=== PATIENT | male | born 1940 | race Caucasian/White ===

== ENCOUNTER 2023-12-05 07:05 | Emergency (ER) | payer MEDICARE, OTHER, SELFPAY ==
[2023-12-05 07:07] VITALS: BP 149/74
[2023-12-05 08:49] VITALS: BP 96/84
[2023-12-05 09:17] VITALS: BP 155/58
[2023-12-05 09:40] LABS: % Basophils 0.5 % (0-2); % Eosinophils 1.7 % (0-6); % Immature Granulocytes 0.5 % (0-0.5); % Lymphocytes 24.4 % (20.5-51.1); % Monocytes 9.1 % (1.7-9.3); % Neutrophils 63.8 % (42.2-75.2); Absolute Eosinophils 0.1 10^3/uL (0-0.7); Absolute Lymphocytes 1.4 10^3/uL (1.2-3.4); Absolute Monocytes 0.5 10^3/uL (0.1-0.6); Absolute Neutrophils 3.7 10^3/uL (1.4-6.5); Hematocrit 33.3 % (39.0-52.0); Hemoglobin 10.8 g/dL (13.0-18.0); Mean Corp Hgb Conc. 32.4 g/dL (33.0-37.0); Mean Corpuscular Volume 95.7 fL (80.0-94.0); Mean Platelet Volume 10.2 fL (7.4-10.4); Nucleated Red Blood Cells % 0 % (-); Platelet Count 149 10^3/uL (130-400); Red Blood Cell Count 3.48 10^6/uL (4.70-6.10); Red Cell Dist. Width 14.6 % (11.5-14.5); White Blood Cell Count 5.8 10^3/uL (4.8-10.8)
--- NOTE | 2023-12-05 09:53 | ED.GENMED ---
History of Present Illness
General
Chief Complaint: Fall
Source: patient and family
Exam Limitations: none
Time Seen by Provider: 12/05/23 08:04
Nursing documentation reviewed up to this point in time: agreed with
Travel History
Have you had any contact with someone who has COVID-19?: No
Do you have any symptoms of coronavirus? Fever > 100 degrees, chills, cough, shortness of breath, sore throat, loss of taste or smell, muscle aches, or headache?: No
History of Present Illness
History of Present Illness:
84-year-old male with past medical history of dementia hypertension hyperlipidemia pacemaker in place presenting to the emergency department after he fell this morning claims he lost his footing might have hit his head but also his left hand denies
additional concerns. Has had vague increased weakness over the past few. He does live at home with them. He denies any specific symptoms. No head pain no numbness or weakness
Past History
Past History
ED Past Medical History: GERD, HTN, Hypercholesterolemia, Other (Masthenia Gravis) and Other ( Sleep apnea wears C-pap, Gout, peripheral neuropathy)
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
Social History
Tobacco: Non-smoker
Alcohol: None
Personal:
Living: with family
Review of Systems
Review of Systems
Allergies reviewed?: Yes
All Other Systems: ROS reviewed and negative except as documented in HPI and ROS
Phy Exam
Physical Exam
Physical Exam:
GENERAL: Alert , in no apparent distress
EYE: pupils equal and reactive
NECK: Supple, no significant adenopathy.
ENT: o/p clr, mmm.
CARDIAC: Regular rate and rhythm .
LUNGS: Clear breath sounds bilaterally, no acute respiratory distress, no wheezes/rales/rhonchi
ABDOMEN: Soft, without focal tenderness, no r/g, no cvat
NEUROLOGICAL: Alert , no focal neuro deficits 5 out of 5 upper and lower extremity strength normal sensation with palpating bilaterally normal finger-nose and fgby-ma-kgqm no prior
SKIN: Warm and dry, skin intact.
MUSCULOSKELETAL: No edema, well perfused.
PSYCH: Normal and appropriate interaction.
Course
Orders/Labs/Results
Orders:
Orders
12/05/23 08:31
EKG [Electrocardiogram (*1)] Urgent
Reason for Study: Fatigue / Weakness
CT Head W/o Iv Contrast Urgent
Comment:
Reason For Exam: fall possible head strike on eliquis
12/05/23 08:32
EKG- Treatment ONCE
12/05/23 08:53
CBC/With Diff [Complete Blood Count/With Diff] Urgent
CMP [Comprehensive Metabolic Panel] Urgent
TSH Reflex To Free T4 Urgent
12/05/23 11:38
Urinalysis Reflex To Culture Urgent
Date Specimen was Collected: 12/05/23
Time Specimen was Collected: 10:22
Abnormal Lab Results
12/05/23
08:53
RBC 3.48 L 10^6/uL
(4.70-6.10)
Hgb 10.8 L g/dL
(13.0-18.0)
Hct 33.3 L %
(39.0-52.0)
MCV 95.7 H fL
(80.0-94.0)
MCHC 32.4 L g/dL
(33.0-37.0)
RDW 14.6 H %
(11.5-14.5)
Chloride 117 H mmol/L
(98-107)
BUN 42 H mg/dl
(9-20)
Creatinine 1.5 H mg/dL
(0.7-1.3)
Glucose 109 H mg/dl
(70-99)
Total Protein 5.6 L g/dl
(6.3-8.2)
Albumin 3.1 L g/dl
(3.5-5.0)
12/05/23 08:53
12/05/23 08:53
Vital Signs
Initial and Last Documented VS:
Initial Vital Signs
Temp Pulse Resp BP Pulse Ox
98.1 F 72 18 149/74 98
12/05/23 07:07 12/05/23 07:07 12/05/23 07:07 12/05/23 07:07 12/05/23 07:07
Last Documented Vital Signs
Temp Pulse Resp BP Pulse Ox
98.1 F 50 22 162/53 96
12/05/23 07:07 12/05/23 12:00 12/05/23 08:49 12/05/23 10:00 12/05/23 12:00
Procedures
Laceration Closure
Left Hand:
Status of Wound: clean
Size of Wound in cm: 6
Description of Wound Edges: other (Skin tear)
Preparation: cleaned with saline
Revision/Debridement: routine- no revision and irrigate-direct pressure
Wound exploration: explored to base- no FB and no tendon involvement
Type of Closure: other (6 Steri-Strips)
MDM/Problems Addressed
MDM/Problems Addressed:
83-year-old male presenting to the emergency department today with concerns of ground-level fall where he got tripped up on the ground mainly hitting his left hand causing a skin tear to the left hand vital signs here are normal he denies any
specific concerns no focality to his neurologic examination. Head CT was negative. Head CT was ordered concerning was not sure if he hit his head and patient is currently on Eliquis. EKG paced with no emergent findings. Patient in no distress
throughout ER stay blood pressure remained somewhat elevated but not critically high patient advised for close outpatient follow-up left hand was Steri-Stripped otherwise stable for discharge return precautions given.
*Critical Care Note
Total Time (30-74mins, 75-104mins- exclusive of procedures): Not Applicable
ED Attending Note
-
Portions of this chart may have been created with voice recognition software.� Occasional wrong word or��sound alike� substitutions may have occurred due to the inherent limitations of voice recognition software.
Discharge Plan
Departure
Patient Disposition: Home (Routine Discharge)
Date of Disposition: 12/05/23
Time of Disposition: 12:12
Patient with high blood pressure during this ER visit?: Yes
Condition: Good
Covid-19: Not Applicable
Discharge Problem:
Fall, Skin tear of hand without complication
Instructions: Wound Care (DC), Preventing falls in adults, BLOOD PRESSURE
Prescriptions:
No Action
calcium polycarbophil [Fiber-Tabs] 625 MG tablet
1,250 mg PO BID@0800,1600
allopurinol 300 MG tablet
300 mg PO DAILY
finasteride 5 MG tablet
5 mg PO QPM
tamsulosin 0.4 MG capsule
0.8 mg PO QPM
pyridostigmine bromide 60 MG tablet
90 mg PO TID@0800,1200,1600
pyridostigmine bromide 60 MG tablet
60 mg PO DAILY@2000
cholecalciferol (vitamin D3) 1,000 UNITS tablet
5,000 units PO DAILY@1200
amlodipine-olmesartan 1 EACH tablet
1 tab PO DAILY@1200
omeprazole 20 MG capsule,delayed release(DR/EC)
20 mg PO DAILY
cephalexin [Keflex] 500 MG capsule
500 mg PO BID Qty: 4 0RF
Referrals:
Last Rice MD [Family Provider] -
Activity Restrictions/Additional Instructions:
You came to the emergency department today after a fall. Here you had a reassuring assessment. Your labs are at baseline head CT without emergent findings. Please keep your hand clean covered and follow-up close with the primary care doctor
within a week for reassessment. Additionally blood pressure was mildly elevated. Please monitor this. Return to the emergency department for any worsening, new or concerning symptoms.
Interventions
Interventions:
*Risk Screen - Suicide Last Done: 12/05/23 07:11
*General Assessment Last Done: 12/05/23 07:11
*Neglect/Abuse Screening Last Done: 12/05/23 07:11
ED- Fall Risk Assessment Last Done: 12/05/23 08:46
*ED COVID-19 Vaccine History Last Done: 12/05/23 08:46
ED-Musculoskeletal Assessment Last Done: 12/05/23 08:46
ED- Neurological Assessment Last Done: 12/05/23 08:46
ED-Skin Assessment Last Done: 12/05/23 08:46
Discharge Date and Time
Print Language: FILIPINO
[2023-12-05 09:54] LABS: ALT (SGPT) 14 U/L (0-50); AST (SGOT) 21 U/L (17-59); Albumin 3.1 g/dl (3.5-5.0); Alkaline Phosphatase 62 U/L (38-126); Blood Urea Nitrogen 42 mg/dl (9-20); Calcium 8.9 mg/dl (8.4-10.2); Carbon Dioxide 26 mmol/L (22-30); Chloride 117 mmol/L (98-107); Glucose 109 mg/dl (70-99); Potassium 4.5 mmol/L (3.5-5.1); Sodium 140 mmol/L (135-145); Total Bilirubin 0.4 mg/dl (0.2-1.3); Total Protein 5.6 g/dl (6.3-8.2); eGFR 46.19
[2023-12-05 10:00] VITALS: BP 162/53
[2023-12-05 10:24] LABS: TSH Reflex To Free T4 2.62 uIU/ml (0.47-4.68)
[2023-12-05 11:48] LABS: Urine Albumin Trace (Neg - Trace); Urine Bilirubin Negative (Negative); Urine Character Clear (Clear); Urine Color Yellow; Urine Glucose Negative (Negative); Urine Ketone Negative (Negative); Urine Leukocyte Negative (Negative); Urine Nitrite Negative (Negative); Urine Occult Blood Negative (Negative); Urine Urobilinogen Negative (Neg - 1+)
== END 2023-12-05 12:32 | disposition home or self-care (01) ==
LOC: EMR 07:05
PROVIDERS: Physician Assistant; EMERGENCY PHYSICIAN Emergency Medicine; FAMILY PHYSICIAN Family Medicine
DX: S61.412A Laceration without foreign body of left hand, initial encounter (principal); W18.39XA Other fall on same level, initial encounter; I10 Essential (primary) hypertension; E78.00 Pure hypercholesterolemia, unspecified; K21.9 Gastro-esophageal reflux disease without esophagitis; G47.30 Sleep apnea, unspecified; G62.9 Polyneuropathy, unspecified; M10.9 Gout, unspecified; G70.00 Myasthenia gravis without (acute) exacerbation; M19.90 Unspecified osteoarthritis, unspecified site; Z79.01 Long term (current) use of anticoagulants; Z96.653 Presence of artificial knee joint, bilateral; Z95.0 Presence of cardiac pacemaker
CPT/HCPCS: 99284; 70450; 80053; 81003; 84443; 85025; 93005

== ENCOUNTER → 2024-01-26 10:35 | Outpatient (REF) | payer MEDICARE, OTHER, SELFPAY ==
[2024-01-26 12:07] LABS: Glycohemoglobin (HgbA1c) 5.7 % (4.0-5.6)
[2024-01-26 12:29] LABS: HDL Cholesterol 42 mg/dl; LDL Cholesterol, Calculated 114 mg/dl; Total Cholesterol 171 mg/dl (50-199); Triglyceride 78 mg/dl (10-149); Very Low Density Lipoprotein 15 mg/dl (0-30)
== END ==
LOC: REG 10:35
PROVIDERS: ATTENDING PHYSICIAN Psychiatry & Neurology Neurology; FAMILY PHYSICIAN Family Medicine
DX: G45.9 Transient cerebral ischemic attack, unspecified (principal); R79.9 Abnormal finding of blood chemistry, unspecified
CPT/HCPCS: 36415; 80061; 83036

== ENCOUNTER → 2024-02-11 11:06 | Outpatient (REF) | payer MEDICARE, OTHER, SELFPAY | LOC: RCS 11:06 | PROVIDERS: ATTENDING PHYSICIAN Psychiatry & Neurology Neurology; FAMILY PHYSICIAN Family Medicine | DX: G45.9 Transient cerebral ischemic attack, unspecified (principal) | CPT/HCPCS: 93306 ==

== ENCOUNTER → 2024-04-02 12:43 | Outpatient (REF) | payer MEDICARE, OTHER, SELFPAY | LOC: MRI 3T 12:43 | PROVIDERS: ATTENDING PHYSICIAN Psychiatry & Neurology Neurology; FAMILY PHYSICIAN Family Medicine | DX: G45.9 Transient cerebral ischemic attack, unspecified (principal) | CPT/HCPCS: 70544; 70547; 70551 ==

== ENCOUNTER 2024-05-02 23:07 | Emergency (ER) | payer MEDICARE, OTHER, SELFPAY ==
[2024-05-02 23:16] VITALS: BP 113/46
[2024-05-02 23:25] VITALS: BP 113/46; BMI 35.7
--- NOTE | 2024-05-03 00:24 | ED.GENMED ---
History of Present Illness
General
Chief Complaint: Fall
Source: patient and family
Exam Limitations: dementia
Time Seen by Provider: 05/02/24 23:53
Nursing documentation reviewed up to this point in time: agreed with
History of Present Illness
History of Present Illness:
84 y/o M h/o htn, hld, pacer
dementia
balance problems
wa getting out of bed tonight and fell backwards and hit head on he corner of the dresser. no LOC
on eliquis
laceration posterior head, bleeding controlled
no change in mental status expected from baseline dementia at this hour of the night
he has not had vomiting, weakness, neck pain, c/o hip/back pain
was albe to be helped up and walk to the ambulnce
tetanus > 5 year ago
Past History
Past History
ED Past Medical History: GERD, HTN, Hypercholesterolemia, Other (Masthenia Gravis) and Other ( Sleep apnea wears C-pap, Gout, peripheral neuropathy)
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
Social History
Tobacco: Non-smoker
Alcohol: None
Personal:
Living: with family
Review of Systems
Review of Systems
Allergies reviewed?: Yes
Unable to obtain full review of systems at this time due to: dementia
All Other Systems: Not applicable
Phy Exam
Physical Exam
Physical Exam:
GENERAL: Alert , in no apparent distress
HEAD: laceration posterior scalp
nontender
NECK: no midline tenderness, active ROM intact, no paraspinal muscle tenderness;
EYE: pupils equal and reactive, EOMs intact.
ENT: o/p clr, mmm. no hemotympanum
CARDIAC: Regular rate and rhythm, no edema
LUNGS: Clear breath sounds bilaterally, no acute respiratory distress, no wheezes/rales/rhonchi
ABDOMEN: Soft, without focal tenderness, no r/g, no cvat
NEUROLOGICAL: Alert and oriented x 1; dementia; otherwise no focal neuro deficits, CN intact, 5/5 strength, sensation intact
SKIN: Warm and dry,
MUSCULOSKELETAL wears brace on RLE; moving hips well
PSYCH: Normal and appropriate interaction.
Course
Orders/Labs/Results
Orders:
Orders
05/03/24 00:03
CT Cervical Spine W/o Iv Contr Urgent
Reason For Exam: fall, head strike
CT Head W/o Iv Contrast Urgent
Reason For Exam: fall, head strike
05/03/24 01:17
Tetanus/Diphth/Acelpertussis [Adacel] 0.5 ml IM .ONCE ONE
Vital Signs
Initial and Last Documented VS:
Initial Vital Signs
BP
113/46
05/02/24 23:16
Last Documented Vital Signs
Temp Pulse Resp BP Pulse Ox
98.6 F 59 18 110/58 95
05/02/24 23:25 05/02/24 23:25 05/02/24 23:25 05/03/24 01:00 05/03/24 01:15
Procedures
Laceration Closure
Posterior Scalp:
Status of Wound: clean
Size of Wound in cm: 6
Description of Wound Edges: sharp and flap-well vascularized
Preparation: cleaned with saline
Anesthesia: 1% Lidocaine with epi
Revision/Debridement: routine- no revision
Wound exploration: extensive cleaning of contaminated wound and explored to base- no FB
Type of Closure: single layer closure
Skin Closure Material: 4-0 prolene
Number of sutures: 6
MDM/Problems Addressed
MDM/Problems Addressed:
dementia
mechanial fall backwards
hit head
no loc
on eliquis
able to get up
at his baseline
witnessed by family
no other complaints
laceration posterior scalp sutured
ct head/neck neg for acute findings
tetanus updated
sutures out in 7 days
ice of and on
discussed holding eliquis for tomorrow am
*Critical Care Note
Total Time (30-74mins, 75-104mins- exclusive of procedures): Not Applicable
ED Attending Note
-
Portions of this chart may have been created with voice recognition software.� Occasional wrong word or��sound alike� substitutions may have occurred due to the inherent limitations of voice recognition software.
Discharge Plan
Departure
Patient Disposition: Home (Routine Discharge)
Date of Disposition: 05/03/24
Time of Disposition: 01:15
Patient with high blood pressure during this ER visit?: No
Condition: Fair
Covid-19: Not Applicable
Discharge Problem:
Head injury, Laceration of scalp
Instructions: Head Injury in Adults (DC), Laceration Repair With Stitches (DC)
Prescriptions:
No Action
calcium polycarbophil [Fiber-Tabs] 625 MG tablet
1,250 mg PO BID@0800,1600
allopurinol 300 MG tablet
300 mg PO DAILY
finasteride 5 MG tablet
5 mg PO QPM
tamsulosin 0.4 MG capsule
0.8 mg PO QPM
pyridostigmine bromide 60 MG tablet
90 mg PO TID@0800,1200,1600
pyridostigmine bromide 60 MG tablet
60 mg PO DAILY@2000
cholecalciferol (vitamin D3) 1,000 UNITS tablet
5,000 units PO DAILY@1200
amlodipine-olmesartan 1 EACH tablet
1 tab PO DAILY@1200
omeprazole 20 MG capsule,delayed release(DR/EC)
20 mg PO DAILY
atorvastatin 40 mg Tablet
40 mg PO HS
memantine 10 mg Tablet
10 mg PO BID
Eliquis 5 mg Tablet
5 mg PO BID
Referrals:
Last Rice MD [Family Provider] - Follow up in 5-7 days
Activity Restrictions/Additional Instructions:
KEEP THE WOUND CLEAN AND DRY FOR 24 HOURS
AFTER THAT YOU CAN GET IT WET IN THE BATH/SHOWER ONCE A DAY AND MAKE SURE IT IS CLEAN AND THERE IS NO DRIED BLOOD ON THE STITCHES
APPLY NEOSPORIN
THE STITCHES NEED TO BE REMOVED IN ABOUT 7 DAYS, SEE YOUR DOCTOR FOR THIS.
WATCH FOR SIGNS OF INFECTION AND RETURN NEEDED FOR PAIN, SWELLING, REDNESS, DRAINAGE, BLEEDING.
tylenol NEEDED FOR PAIN.
His CAT scan showed no signs of head trauma. He did have some degenerative changes in his cervical spine but no fractures.
May consider holding Eliquis in the morning dose 1 dose because of his trauma. You can always call his doctor to discuss this.
Return for any concerns like severe headache or change in mental status, vomiting etc.
Interventions
Interventions:
*Risk Screen - Suicide Last Done: 05/02/24 23:25
*General Assessment Last Done: 05/02/24 23:25
*Neglect/Abuse Screening Last Done: 05/02/24 23:25
ED- Fall Risk Assessment Last Done: 05/03/24 01:36
*ED COVID-19 Vaccine History Last Done: 05/02/24 23:25
*Nursing Disposition Last Done: 05/03/24 01:35
ED-Musculoskeletal Assessment Last Done: 05/03/24 00:24
ED- Neurological Assessment Last Done: 05/03/24 00:24
ED-Skin Assessment Last Done: 05/03/24 00:24
Discharge Date and Time
Discharge Date/Time: 05/03/24 01:36
Print Language: FRISIAN
[2024-05-03 00:49] VITALS: BP 118/46
[2024-05-03 00:51] VITALS: BP 118/46
[2024-05-03 01:00] VITALS: BP 110/58
[2024-05-03] MEDS: ADACEL 0.5 ML IM (01:21)
== END 2024-05-03 01:36 | disposition home or self-care (01) ==
LOC: EMR 23:07
PROVIDERS: EMERGENCY PHYSICIAN Emergency Medicine; FAMILY PHYSICIAN Family Medicine
DX: S09.90XA Unspecified injury of head, initial encounter (principal); S01.01XA Laceration without foreign body of scalp, initial encounter; W06.XXXA Fall from bed, initial encounter; I10 Essential (primary) hypertension; E78.00 Pure hypercholesterolemia, unspecified; F03.90 Unspecified dementia, unspecified severity, without behavioral disturbance, psychotic disturbance, mood disturbance, and anxiety; G47.30 Sleep apnea, unspecified; K21.9 Gastro-esophageal reflux disease without esophagitis; Z79.01 Long term (current) use of anticoagulants; Z96.659 Presence of unspecified artificial knee joint
CPT/HCPCS: 99284; 12002; 70450; 72125; 90715

== ENCOUNTER 2024-08-02 21:26 | Emergency (ER) | payer MEDICARE, OTHER, SELFPAY ==
[2024-08-02 21:29] VITALS: BMI 36.5
[2024-08-02 21:32] VITALS: BP 172/71
[2024-08-02 22:00] VITALS: BP 158/69
--- NOTE | 2024-08-02 22:05 | ED.GENMED ---
History of Present Illness
General
Chief Complaint: Fall
Source: patient and significant other
Exam Limitations: dementia
Time Seen by Provider: 08/02/24 21:29
Nursing documentation reviewed up to this point in time: agreed with
History of Present Illness
History of Present Illness:
Patient is a an 84-year-old male with past medical history of GERD hypertension hypercholesteremia myasthenia gravis presents to the ER for evaluation after fall. at bedside giving history. She reports patient does have dementia. Patient
was in his desk as per when he slid out of the chair. She reports she could not get patient up. She does not believe he hit his head however he is on Eliquis
Patient arrives awake alert he is able to tell me his name. Able to give me some history. He has no complaints.
Past History
Past History
ED Past Medical History: GERD, HTN, Hypercholesterolemia, Other (Masthenia Gravis) and Other ( Sleep apnea wears C-pap, Gout, peripheral neuropathy)
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
Social History
Tobacco: Non-smoker
Alcohol: None
Personal:
Living: with family
Review of Systems
Review of Systems
Allergies reviewed?: Yes
All Other Systems: ROS reviewed and negative except as documented in HPI and ROS
Constitutional: Reports no symptoms; Denies fever, fatigue or chills
Respiratory: Reports no symptoms
Cardiac: Reports no symptoms
ABD/GI: Reports no symptoms
Musculoskeletal: Reports no symptoms
Skin: Reports no symptoms
Neurological: Denies headache
Psychiatric: Reports no symptoms
Phy Exam
General Physical Exam
General Presentation: no apparent distress
General age: appears stated age
General Skin: warm and dry
General Habitus: elderly
General Mental: alert
General Hydration: appears well hydrated
Cardiovascular Exam
Cardiovascular Exam: regular rate/rhythm, no murmur and normal peripheral pulses
Pulmonary Exam
Pulmonary Exam: lungs clear and no respiratory distress
Neurological Exam
Neurological Exam: alert and oriented x3
Musculoskeletal Exam
Musculoskeletal Exam: full ROM and other (No obvious head injury on exam)
Skin Exam
Skin Exam: normal color and warm/dry
Psychiatric Exam
Psychiatric Exam: normal mood/affect
Course
Orders/Labs/Results
Orders:
Orders
08/02/24 22:11
CT Cervical Spine W/o Iv Contr Urgent
Comment:
Reason For Exam: trauma
CT Head W/o Iv Contrast Urgent
Comment:
Reason For Exam: trauma
Vital Signs
Initial and Last Documented VS:
Initial Vital Signs
Temp Pulse Resp Pulse Ox
97.4 F 88 20 98
08/02/24 21:29 08/02/24 21:29 08/02/24 21:29 08/02/24 21:29
Last Documented Vital Signs
Temp Pulse Resp BP Pulse Ox
97.4 F 60 20 168/87 99
08/02/24 21:29 08/02/24 23:16 08/02/24 21:29 08/02/24 23:11 08/02/24 23:16
MDM/Problems Addressed
Differential Diagnosis Includes:
not limited to : fall , cervical fracture less likely, intracranial hemorrhage less likely
MDM/Problems Addressed:
Patient is an 84-year-old male with history myasthenia gravis brought by EMS. reports patient slid out of his chair in the office and she could not get him up. He is awake alert he is at baseline. He does have a history of dementia he has no
complaints. He is on Eliquis. No obvious head injury on exam however CT head and cervical spine were done and unremarkable. Patient was able to ambulate to the bathroom with a walker there were no other acute injuries. He does have a history of
falling with his history of myasthenia gravis and balance problems are not new for him. He is at baseline mental status and stable for discharge home.
*Radiology
Radiology exam reviewed: radiology read reviewed
*Pulse Oximetry
Patient hypoxic: no
*Critical Care Note
Total Time (30-74mins, 75-104mins- exclusive of procedures): Not Applicable
ED Attending Note
-
Portions of this chart may have been created with voice recognition software.� Occasional wrong word or��sound alike� substitutions may have occurred due to the inherent limitations of voice recognition software.
Discharge Plan
Departure
Patient Disposition: Home (Routine Discharge)
Date of Disposition: 08/03/24
Time of Disposition: 00:31
Patient with high blood pressure during this ER visit?: Yes
Condition: Fair
Covid-19: Not Applicable
Discharge Problem:
Fall
Instructions: BLOOD PRESSURE, Preventing falls in adults
Prescriptions:
No Action
calcium polycarbophil [Fiber-Tabs] 625 MG tablet
1,250 mg PO BID@0800,1600
allopurinol 300 MG tablet
300 mg PO DAILY
finasteride 5 MG tablet
5 mg PO QPM
tamsulosin 0.4 MG capsule
0.8 mg PO QPM
pyridostigmine bromide 60 MG tablet
90 mg PO TID@0800,1200,1600
pyridostigmine bromide 60 MG tablet
60 mg PO DAILY@2000
cholecalciferol (vitamin D3) 1,000 UNITS tablet
5,000 units PO DAILY@1200
amlodipine-olmesartan 1 EACH tablet
1 tab PO DAILY@1200
omeprazole 20 MG capsule,delayed release(DR/EC)
20 mg PO DAILY
atorvastatin 40 mg Tablet
40 mg PO HS
memantine 10 mg Tablet
10 mg PO BID
Eliquis 5 mg Tablet
5 mg PO BID
Referrals:
Last Rice MD [Family Provider] -
Activity Restrictions/Additional Instructions:
Patient had a CAT scan done of his head and cervical spine both of which were negative for acute injury.
Follow-up with family doctor the next 2 days for reevaluation.
Return if any worsening of symptoms.
Interventions
Interventions:
*Risk Screen - Suicide Last Done: 08/02/24 21:29
*General Assessment Last Done: 08/02/24 21:29
*Neglect/Abuse Screening Last Done: 08/02/24 21:29
ED- Fall Risk Assessment Last Done: 08/02/24 21:29
*ED COVID-19 Vaccine History Last Done: 08/02/24 21:29
ED-Musculoskeletal Assessment Last Done: 08/02/24 21:29
ED- Neurological Assessment Last Done: 08/02/24 21:29
ED-Skin Assessment Last Done: 08/02/24 21:29
Discharge Date and Time
Print Language: BURKINAN
[2024-08-02 23:11] VITALS: BP 168/87
== END 2024-08-03 00:40 | disposition home or self-care (01) ==
LOC: EMR 21:26
PROVIDERS: EMERGENCY PHYSICIAN Emergency Medicine; FAMILY PHYSICIAN Family Medicine
DX: Z04.89 Encounter for examination and observation for other specified reasons (principal); W19.XXXA Unspecified fall, initial encounter; K21.9 Gastro-esophageal reflux disease without esophagitis; I10 Essential (primary) hypertension; E78.00 Pure hypercholesterolemia, unspecified; G70.00 Myasthenia gravis without (acute) exacerbation; F03.90 Unspecified dementia, unspecified severity, without behavioral disturbance, psychotic disturbance, mood disturbance, and anxiety; G47.30 Sleep apnea, unspecified; Z79.01 Long term (current) use of anticoagulants; Z96.659 Presence of unspecified artificial knee joint
CPT/HCPCS: 99284; 70450; 72125

== ENCOUNTER 2024-08-08 16:11 | Inpatient (IN) | payer MEDICARE, OTHER, SELFPAY ==
[2024-08-07] VITALS (9 sets, daily range): BP systolic 159–180; BP diastolic 59–133; BMI 34.9; BMI 36.0
[2024-08-07 11:25] LABS: % Basophils 0.4 % (0-2); % Eosinophils 0.9 % (0-6); % Immature Granulocytes 0.2 % (0-0.5); % Monocytes 10.8 % (1.7-9.3); % Neutrophils 66.7 % (42.2-75.2); Absolute Monocytes 0.5 10^3/uL (0.1-0.6); Absolute Neutrophils 3.1 10^3/uL (1.4-6.5); Hematocrit 32.5 % (39.0-52.0); Hemoglobin 10.7 g/dL (13.0-18.0); Mean Corp Hgb Conc. 32.9 g/dL (33.0-37.0); Mean Corpuscular Hgb 32.5 pg (27.0-31.0); Mean Corpuscular Volume 98.8 fL (80.0-94.0); Mean Platelet Volume 10.3 fL (7.4-10.4); Nucleated Red Blood Cells % 0 % (-); Platelet Count 118 10^3/uL (130-400); Red Blood Cell Count 3.29 10^6/uL (4.70-6.10); Red Cell Dist. Width 14.6 % (11.5-14.5); White Blood Cell Count 4.6 10^3/uL (4.8-10.8)
[2024-08-07 11:39] LABS: Lactic Acid 1.1 mmol/L (0.7-2.0)
[2024-08-07 11:44] LABS: COVID-19 Antigen Negative (Negative)
[2024-08-07 11:54] LABS: ALT (SGPT) 17 U/L (0-50); AST (SGOT) 29 U/L (17-59); Albumin 3.1 g/dl (3.5-5.0); Alkaline Phosphatase 79 U/L (38-126); Blood Urea Nitrogen 34 mg/dl (9-20); Calcium 8.6 mg/dl (8.4-10.2); Carbon Dioxide 24 mmol/L (22-30); Chloride 113 mmol/L (98-107); Glucose 129 mg/dl (70-99); Potassium 4.1 mmol/L (3.5-5.1); Sodium 138 mmol/L (135-145); Total Bilirubin 0.6 mg/dl (0.2-1.3); Total Protein 5.6 g/dl (6.3-8.2); eGFR 39.51
--- NOTE | 2024-08-07 12:11 | EDRN ---
hes sleepy so I placed O2@4L as he does not have his CPAP mahine with him
--- NOTE | 2024-08-07 12:39 | ED.GENMED ---
History of Present Illness
General
Chief Complaint: Weakness
Source: patient
Exam Limitations: none
Time Seen by Provider: 08/07/24 12:16
History of Present Illness
History of Present Illness:
84-year-old male with history of myasthenia gravis, A-fib has a pacemaker on Eliquis presents with generalized weakness worsening over the past 2 to 3 days with multiple falls over the past week. He has fallen 3 times in the past week. Most
recently was this morning. He has a history of dementia. He denies pain. Family notes a productive cough. There has been no vomiting. He typically ambulates with a walker at home.
Past History
Past History
ED Past Medical History: GERD, HTN, Hypercholesterolemia, Other (Masthenia Gravis) and Other ( Sleep apnea wears C-pap, Gout, peripheral neuropathy)
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
Social History
Tobacco: Non-smoker
Alcohol: None
Personal:
Living: with family
Phy Exam
Physical Exam
Physical Exam:
General: Well-developed male no acute respiratory distress
HEENT:NC/AT
Heart: Regular rate and rhythm
Lungs: Clear no wheeze
Extremities: Mild edema bilateral lower extremities
Skin is warm no rash
Course
Orders/Labs/Results
Orders:
Orders
08/07/24 11:18
COVID-19 Antigen Urgent
Source: Nasal Swab
Complete Blood Count/With Diff Urgent
Comprehensive Metabolic Panel Urgent
Lactic Acid Urgent
Influenza A+B Rapid Molecular Urgent
KUSHAL Source: Nasal Swab
Specimen Description:
08/07/24 11:31
CT Head W/o Iv Contrast Urgent
Comment:
Reason For Exam: slurred speech
08/07/24 11:38
CT Cervical Spine W/o Iv Contr Urgent
Comment:
Reason For Exam: frequent fall on thinners
08/07/24 12:30
CR Chest Portable - 1 View Urgent
Comment:
Reason For Exam: weakness, fever, cough
Reason Study Needs to be Portable: Patient Unstable
Abnormal Lab Results
08/07/24
11:18
WBC 4.6 L 10^3/uL
(4.8-10.8)
RBC 3.29 L 10^6/uL
(4.70-6.10)
Hgb 10.7 L g/dL
(13.0-18.0)
Hct 32.5 L %
(39.0-52.0)
MCV 98.8 H fL
(80.0-94.0)
MCH 32.5 H pg
(27.0-31.0)
MCHC 32.9 L g/dL
(33.0-37.0)
RDW 14.6 H %
(11.5-14.5)
Plt Count 118 L 10^3/uL
(130-400)
Absolute Lymphs (auto) 1.0 L 10^3/uL
(1.2-3.4)
Monocytes % 10.8 H %
(1.7-9.3)
Chloride 113 H mmol/L
(98-107)
BUN 34 H mg/dl
(9-20)
Creatinine 1.7 H mg/dL
(0.7-1.3)
Glucose 129 H mg/dl
(70-99)
Total Protein 5.6 L g/dl
(6.3-8.2)
Albumin 3.1 L g/dl
(3.5-5.0)
08/07/24 11:18
08/07/24 11:18
Vital Signs
Initial and Last Documented VS:
Initial Vital Signs
Temp Pulse Resp BP Pulse Ox
100.4 F H 73 18 176/76 97
08/07/24 11:04 08/07/24 11:04 08/07/24 11:04 08/07/24 11:04 08/07/24 11:04
Last Documented Vital Signs
Temp Pulse Resp BP Pulse Ox
100.4 F H 56 20 166/59 85
08/07/24 11:04 08/07/24 12:00 08/07/24 12:00 08/07/24 12:00 08/07/24 12:09
MDM/Problems Addressed
Differential Diagnosis Includes:
Weakness multiple falls. Consider dehydration versus electrolyte abnormality versus viral illness versus pneumonia and traumatic injury to the head or neck.
CT of head and cervical spine were reviewed and are negative. Patient tested positive for influenza. Creatinine is 1.7. He was hypoxic at 85% on room air and is now requiring 4 L of oxygen. Portable chest x-ray is pending. Anticipate need for
admission secondary to hypoxia, recent falls in the setting of influenza. Unlikely to be PE secondary to anticoagulated state
*Critical Care Note
Total Time (30-74mins, 75-104mins- exclusive of procedures): Not Applicable
Update Note
Update Note:
Influenza positive chest x-ray reviewed without obvious acute finding. Patient is requiring 4 L of oxygen. He has had multiple falls due to generalized weakness. Patient will be admitted.
ED Attending Note
-
Portions of this chart may have been created with voice recognition software.� Occasional wrong word or��sound alike� substitutions may have occurred due to the inherent limitations of voice recognition software.
Discharge Plan
Departure
Patient Disposition: Admit
Date of Disposition: 08/07/24
Time of Disposition: 13:50
Presentation/result/management discussed w/ accepting MD/DO: Hospitalist
Discharge Problem:
Influenza A, Hypoxia
Prescriptions:
No Action
calcium polycarbophil [Fiber-Tabs] 625 MG tablet
1,250 mg PO BID@0800,1600
allopurinol 300 MG tablet
300 mg PO DAILY
finasteride 5 MG tablet
5 mg PO QPM
tamsulosin 0.4 MG capsule
0.8 mg PO QPM
pyridostigmine bromide 60 MG tablet
90 mg PO .1200, 1600
pyridostigmine bromide 60 MG tablet
60 mg PO DAILY@2000
cholecalciferol (vitamin D3) 1,000 UNITS tablet
5,000 units PO DAILY@1200
atorvastatin 40 mg Tablet
40 mg PO HS
memantine 10 mg Tablet
10 mg PO BID
Eliquis 5 mg Tablet
5 mg PO BID
amlodipine 5 mg Tablet
5 mg PO DAILY
Rx Instructions:
currently on HOLD
famotidine 20 mg Tablet
20 mg PO DAILY
paroxetine HCl 30 mg Tablet
30 mg PO DAILY
pyridostigmine bromide 60 mg Tablet
120 mg PO .0800
olmesartan 5 mg Tablet
5 mg PO DAILY
Centrum Silver Tablet
1 tab PO DAILY
iVizia (PF) 0.5 % Drops
1 drp OPHTHALMIC (EYE) BID
Referrals:
Last Rice MD [Family Provider] -
Interventions
Interventions:
*Risk Screen - Suicide Last Done: 08/07/24 11:04
*General Assessment Last Done: 08/07/24 11:04
*Neglect/Abuse Screening Last Done: 08/07/24 11:04
ED- Fall Risk Assessment Last Done: 08/07/24 12:09
*ED COVID-19 Vaccine History Last Done: 08/07/24 11:04
ED- Cardiac Assessment Last Done: 08/07/24 12:09
ED- Neurological Assessment Last Done: 08/07/24 12:09
ED- Pulmonary Assessment Last Done: 08/07/24 12:09
Discharge Date and Time
Print Language: BARBADIAN
--- NOTE | 2024-08-07 14:05 | HPS.HSE ---
Family Physician
-
Family Physician: Last Rice
Chief Complaint
-
weakness
History of Present Illness
84-year-old male past medical history of AV block status post pacemaker, paroxysmal atrial fibrillation on Eliquis, dementia, GERD, hypertension, hypercholesteremia, myasthenia gravis, BPH, osteoarthritis, obstructive sleep apnea, peripheral
neuropathy, presenting after a fall. Patient was in his desk as per when he slid out of the chair. She could not get him up. She does not believe he hit his head.
He has been having cough, shortness of breath, weakness and low-grade fevers and chills since yesterday. He has chronic diarrhea/loose stools. Denies abdominal pain. No vomiting or diarrhea. No chest pain.
No sick contacts.
Does not smoke or drink alcohol.
Medical History
Past Medical History
Past Medical History: Reports Other (AV block status post pacemaker, paroxysmal atrial fibrillation on Eliquis, dementia, GERD, hypertension, hypercholesteremia, myasthenia gravis, BPH, osteoarthritis, obstructive sleep apnea, peripheral neuropathy,)
Past Surgical History: Reports Other (Orthopedic (Total knee replacement R and twice on the L, Right rotator cuff repair))
Social History
Tobacco: Non-smoker
Alcohol: None
Drug: None
Family History
Family History: Not pertinent
Allergies / Home Medications
Allergies reflects when Allergies were last updated in [facility].
Home Medications with original date entered in [facility]
Allergy/Medication List:
Allergies
Allergy/AdvReac Type Severity Reaction Status Date / Time
No Known Drug Allergies Allergy Unknown Verified 08/07/24 12:07
Home Medications
allopurinol 300 mg tablet 300 mg PO DAILY Gout 01/09/20
calcium polycarbophil 625 mg tablet (Fiber-Tabs) 1,250 mg PO BID@0800,1600 Constipation 01/09/20
finasteride 5 mg tablet 5 mg PO QPM Urinary issue 01/09/20
pyridostigmine bromide 60 mg tablet 60 mg PO DAILY@2000 Myasthenia gravis 01/09/20
pyridostigmine bromide 60 mg tablet 90 mg PO BID@1200,1600 Myasthenia gravis 01/09/20
tamsulosin 0.4 mg capsule 0.8 mg PO QPM Urinary issue 01/09/20
apixaban 5 mg tablet (Eliquis) 5 mg PO BID 05/02/24
atorvastatin 40 mg tablet 40 mg PO HS 05/02/24
memantine 10 mg tablet 10 mg PO BID 05/02/24
amlodipine 5 mg tablet 5 mg PO DAILY 08/07/24
cholecalciferol (vitamin D3) 125 mcg (5,000 unit) tablet 125 mcg PO NOON 08/07/24
famotidine 20 mg tablet 20 mg PO DAILY 08/07/24
loperamide 2 mg capsule 2 mg PO Q4HPRN PRN loose stool 08/07/24
rpsqmshdvoux-nulfjogp-pmcmnt tablet 1 tab PO DAILY 08/07/24
olmesartan 5 mg tablet 5 mg PO DAILY 08/07/24
paroxetine HCl 30 mg tablet 30 mg PO DAILY 08/07/24
povidone (PF) 0.5 % eye drops (iVizia (PF)) 1 drp ophthalmic (eye) BID 08/07/24
pyridostigmine bromide 60 mg tablet 120 mg PO DAILY 08/07/24
Review of Systems
-
History Source: Patient
A 12 point ROS was completed and negative except as noted: Yes
Constitutional: Reports No Symptoms
EENT: Reports No Symptoms
Respiratory: Reports No Symptoms
Cardiac: Reports No Symptoms
Abdomen/GI: Reports No Symptoms
: Reports No Symptoms
Musculoskeletal: Reports No Symptoms
Skin: Reports No Symptoms
Neurological: Reports No Symptoms
Endocrine: Reports No Symptoms
Hematologic/Lymphatic: Reports No Symptoms
Psych: Reports No Symptoms
Physical Exam
Vital Signs
Vital Signs
Temp Pulse Resp BP Pulse Ox
100.4 F H 56 20 166/59 85
08/07/24 11:04 08/07/24 12:00 08/07/24 12:00 08/07/24 12:00 08/07/24 12:09
Physical Exam
General: Well Developed, Well Nourished and No Apparent Distress
HEENT: NormoCephalic, Moist mucous membranes and Atraumatic
Respiratory: Clear
Cardiac: S1/S2 and Regular Rhythm; No Murmur or Rub
GI: Soft, Non Tender, Non Distended and Normal Bowel Sounds; No Organomegaly
Rectal: Deferred by Provider
Musculoskeletal: No Clubbing, No Cyanosis and No Edema
Skin: No Rash
Neuro: Nonfocal/grossly intact
Laboratory Results
-
08/07/24 11:18
08/07/24 11:18
Laboratory Results
Lactic Acid 1.1 mmol/L (0.7-2.0) 08/07/24 11:18
Total Bilirubin 0.6 mg/dl (0.2-1.3) 08/07/24 11:18
AST 29 U/L (17-59) 08/07/24 11:18
ALT 17 U/L (0-50) 08/07/24 11:18
Alkaline Phosphatase 79 U/L (38-126) 08/07/24 11:18
Data Reviewed
-
Lab Data: Labs Reviewed by me
Old Records: Reviewed
Impression/Plan
-
IMPRESSION:
PLAN:
# Fall/ambulatory dysfunction secondary to influenza A
-Chest x-ray pending, appears to show infiltrate, report pending
-Tamiflu started
-PT/OT
# Leukopenia, mild thrombocytopenia
-Likely secondary to influenza
-Continue to monitor
Chronic kidney disease
-Creatinine of 1.7 from 1.5 previously
-Single IV fluid bolus
Chronic diarrhea/loose stool
-At baseline
-Continue loperamide
History of AV block status post pacemaker
Paroxysmal atrial fibrillation
-Continue Eliquis
Essential hypertension
-Continue amlodipine
-Continue olmesartan
Chronic HFmrEF
-Prior ejection fraction 50%
Myasthenia gravis
-Continue pyridostigmine
Dementia
-Continue memantine, paroxetine
GERD
-Continue Pepcid
Hypercholesteremia
-Continue statin
BPH
-Continue tamsulosin, finasteride
Osteoarthritis
Obstructive sleep apnea
Peripheral neuropathy
Gout
-Continue allopurinol
Chronic anemia
-Hemoglobin stable
Obesity
Full code
DVT prophylaxis�Eliquis
Cardiac diet
[2024-08-07] MEDS: NSS 500 IV (14:23)
--- NOTE | 2024-08-07 14:33 | EDRN ---
Pt may use his own CPAP at night. Family will bring in
--- NOTE | 2024-08-07 19:15 | PTCARENOTE ---
Pt recieved from day shift RN at 1915. Pt pleasant, AAOX1, VSS, on 5L O2. Pt receptive to room, family at bedside. Pt bed in lowest position and call valdes within reach. Pt educated on importance of call valdes usage, family states he does not
understand how/why to use the call valdes. Bed alarm has been placed and is plugged in. Will continue with current plan of care.
[2024-08-07] MEDS: PROSCAR 5 MG PO (19:43)
[2024-08-07] MEDS: FIBERCON 1250 MG PO (19:43)
[2024-08-07] MEDS: FLOMAX 0.8 MG PO (19:43)
[2024-08-07] MEDS: NAMENDA 10 MG PO (19:44)
[2024-08-07] MEDS: TAMIFLU 30 MG PO (19:44)
[2024-08-07] MEDS: ELIQUIS 2.5 MG PO (20:08)
[2024-08-07] MEDS: MESTINON 60 MG PO (20:08)
[2024-08-07] MEDS: MESTINON PO (20:08)
[2024-08-07] MEDS: LIPITOR 40 MG PO (22:23)
[2024-08-08] VITALS (11 sets, daily range): BP systolic 105–163; BP diastolic 47–75; PULSE 63; O2SAT 93; BMI 36.0; BMI 36.1
[2024-08-08] MEDS: FIBERCON 1250 MG PO ×2 (08:28→15:41)
[2024-08-08] MEDS: BENICAR 5 MG PO (08:29)
[2024-08-08] MEDS: PAXIL 30 MG PO (08:29)
[2024-08-08] MEDS: ELIQUIS 2.5 MG PO ×2 (08:29→20:36)
[2024-08-08] MEDS: THERAGRAN 1 TABLET PO (08:29)
[2024-08-08] MEDS: NAMENDA 10 MG PO ×2 (08:29→20:37)
[2024-08-08] MEDS: TAMIFLU 30 MG PO ×2 (08:31→20:37)
[2024-08-08] MEDS: MESTINON 120 MG PO (08:31)
[2024-08-08] MEDS: ZYLOPRIM 300 MG PO (08:31)
[2024-08-08] MEDS: PEPCID 20 MG PO (08:31)
[2024-08-08] MEDS: NORVASC PO (08:32)
[2024-08-08 09:19] LABS: % Basophils 0.2 % (0-2); % Eosinophils 0.9 % (0-6); % Immature Granulocytes 0.2 % (0-0.5); % Lymphocytes 20.4 % (20.5-51.1); % Monocytes 12.2 % (1.7-9.3); % Neutrophils 66.1 % (42.2-75.2); Absolute Lymphocytes 0.9 10^3/uL (1.2-3.4); Absolute Monocytes 0.6 10^3/uL (0.1-0.6); Hematocrit 29.2 % (39.0-52.0); Hemoglobin 9.7 g/dL (13.0-18.0); Mean Corp Hgb Conc. 33.2 g/dL (33.0-37.0); Mean Corpuscular Hgb 32.1 pg (27.0-31.0); Mean Corpuscular Volume 96.7 fL (80.0-94.0); Mean Platelet Volume 11.3 fL (7.4-10.4); Nucleated Red Blood Cells % 0 % (-); Platelet Count 112 10^3/uL (130-400); Red Blood Cell Count 3.02 10^6/uL (4.70-6.10); Red Cell Dist. Width 14.3 % (11.5-14.5); White Blood Cell Count 4.5 10^3/uL (4.8-10.8)
[2024-08-08 09:34] LABS: ALT (SGPT) 16 U/L (0-50); AST (SGOT) 27 U/L (17-59); Albumin 2.7 g/dl (3.5-5.0); Alkaline Phosphatase 74 U/L (38-126); Blood Urea Nitrogen 32 mg/dl (9-20); Calcium 8.2 mg/dl (8.4-10.2); Carbon Dioxide 21 mmol/L (22-30); Chloride 110 mmol/L (98-107); Estimated Creatinine Clearance 47 ml/min; Glucose 110 mg/dl (70-99); Sodium 136 mmol/L (135-145); Total Bilirubin 0.7 mg/dl (0.2-1.3); Total Protein 5.2 g/dl (6.3-8.2); eGFR 42.49
--- NOTE | 2024-08-08 09:38 | W.PN.HOSP.TC ---
Today's Communication/Plan
-
IV immunoglobulin. Neurology consult.
Assessment / Plan
Assessment / Plan
Physical exam:
General: Acutely ill
HEENT: Normocephalic, Atraumatic and Moist Mucous Membranes
Respiratory: Clear to Auscultation; Negative Wheezes, Rales or Rhonchi
Cardiac: Regular Rhythm and S1/S2
GI: Soft, Nontender and Nondistended
Musculoskeletal: No Clubbing, No Cyanosis and No Edema
Neuro: Awake, Alert and disoriented. No ptosis. Generalized weakness symmetrically. No cranial nerve deficits.
Psych: Calm, limited judgment and insight.
A/P:
#Myasthenia gravis
With influenza and generalized weakness, multiple falls, and intermittent slurred speech I am very concerned about myasthenia gravis exacerbation. Discussed with neurology due to my concerns.
Will check NIF and vital capacity.
Continue pyridostigmine for now and we will follow-up further neurology recommendations but likely will start IV immunoglobulin. Checking NIF and vital capacity and ABG. High risk of clinical deterioration. Telemetry.
Changed to inpatient as patient is exhibiting myasthenia gravis exacerbation and will require more than 2 nights of inpatient care and IV medications as well as monitoring the hospital closely for progress and for side effects of intense treatment.
# Influenza A
Continue Tamiflu
Chest x-ray no evidence of pneumonia
#Respiratory insufficiency
Supplemental oxygen
Monitor respiratory status closely
# Leukopenia, mild thrombocytopenia
-Likely secondary to influenza
-Continue to monitor
Chronic kidney disease
-Creatinine of 1.7 from 1.5 previously. Creatinine 1.6 today
-Single IV fluid bolus
Chronic diarrhea/loose stool
-At baseline
-Continue loperamide
History of AV block status post pacemaker
Paroxysmal atrial fibrillation
-Continue Eliquis
Essential hypertension
-Continue amlodipine
-Continue olmesartan
Chronic HFmrEF
-Prior ejection fraction 50%
Dementia
-Continue memantine, paroxetine
GERD
-Continue Pepcid
Hypercholesteremia
-Continue statin
BPH
-Continue tamsulosin, finasteride
Osteoarthritis
Obstructive sleep apnea
Peripheral neuropathy
Gout
-Continue allopurinol
Chronic anemia
-Hemoglobin mild drift but suspect hemodilutional. Hb 10.7--> 9.7
Obesity
Full code
DVT prophylaxis�Eliquis
Total time spent on today's encounter was 52 minutes which included time spent in counseling the patient/family regarding diagnosis and treatment plan as listed above, goals of care, and symptom management. Case was discussed with nursing staff,
specialists, and care coordinators/case management. All labs and imaging personally reviewed by me. Remainder the time spent in detailed review of previous records, lab data, imaging, and other medical provider documentation.
Anticipated Discharge: > 48 hours
Subjective/Interval History
-
Date of Service: August 08, 2024
Patient with generalized weakness. Discussed with son who reports intermittent slurred speech as well. Afebrile today. On supplemental oxygen (not on oxygen at home).
Objective Data
-
Labs:
Laboratory Results
08/08/24
08:08
WBC 4.5 L
Hgb 9.7 L
Hct 29.2 L
Plt Count 112 L
Sodium 136
Potassium 4.0
Chloride 110 H
Carbon Dioxide 21 L
BUN 32 H
Creatinine 1.6 H
Glucose 110 H
Calcium 8.2 L
Total Bilirubin 0.7
AST 27
ALT 16
Alkaline Phosphatase 74
Vital Signs:
Vital Signs
Temp Pulse Resp BP Pulse Ox
97.8 F 66 20 165/70 100
08/07/24 17:15 08/07/24 17:15 08/07/24 17:15 08/07/24 17:15 08/07/24 20:00
[2024-08-08] MEDS: VITAMIN D3 (cholecalciferol) 125 MCG PO (11:51)
[2024-08-08] MEDS: MESTINON 90 MG PO ×2 (11:51→15:41)
--- NOTE | 2024-08-08 13:03 | CM ---
manager telemetry reviewed patient's chart and met with patient and patient was admitted under OBS, RAM letter discussed with patient and son at bedside, not signed, copy provided, patient is on isolation.
Patient lives with spouse and son his and children in a 2 story home, patient is independent with adl's and uses a walker with ambulation, patient also with CPAP machine, and At home rehab in past.
PCP: Dr. Rice
Pharmacy: [facility] in [place]
Plan; Physical therapy evaluated patient and recommendation is for skilled placement, patient and spouse are hoping for At Home Rehab at discharge. Per Rosa patient qualifies for [facility] program.
--- NOTE | 2024-08-08 15:49 | CON.NEURO ---
Addendum entered and electronically signed by Pedrito Watt MD 08/08/24 18:21:
NIF -20, Vital capacity 17.5 ml/kg
ABG pH 7.41, pCO2 35, pO2 79, bicarb 22
NIF and VC are not great but also not as bad as I feared
blood gas looks pretty good
advice upgrade to IMU
Original Note:
Neuro Assessment/Plan
Assessment
myasthenia exacerbation, due to flu
will start IVIG 30 g/day x5 days, pre medicate with tylenol/benadryl
continue Mestinon 120/90/90/60 mg
Afib on Eliquis also good for DVT ppx in IVIG
with single breath count to 12, i have significant concerns for his respiratory capacity
need NIF, vital capacity, blood gas
spoke with patient's son Issa who is agreeable to IVIG, it takes ~3 days to start working
spoke with patient's family, things are likely to get worse before getting better
Plan
IVIG 5 days
NIF, vital capacity, ABG
Consultation
Order
Date of Consultation: 08/08/24
Requesting Provider: Ge Green
Reason for Consult: Myesthenia exacerbation
Subjective/Objective
Subjective Data
Date of Service: August 08, 2024
84-year-old male past medical history of AV block status post pacemaker, paroxysmal atrial fibrillation on Eliquis, dementia, GERD, hypertension, hypercholesteremia, myasthenia gravis, BPH, osteoarthritis, obstructive sleep apnea, peripheral
neuropathy, presenting after a fall. Patient was in his desk as per when he slid out of the chair. She could not get him up. She does not believe he hit his head. Found to have flu and admitted.
Per patient and family, he is substantially weaker than his baseline. no history of respiratory involvement from myasthenia
ANNE on CPAP @12
Objective Data
Vital Signs
Temp Pulse Resp BP Pulse Ox
36.4 C 57 20 105/75 97
08/08/24 07:00 08/08/24 07:00 08/08/24 07:00 08/08/24 07:00 08/08/24 07:00
Lab Results
08/08/24 08:08
08/08/24 08:08
Sodium 136 mmol/L (135-145) 08/08/24 08:08
Potassium 4.0 mmol/L (3.5-5.1) 08/08/24 08:08
BUN 32 mg/dl (9-20) H 08/08/24 08:08
Glucose 110 mg/dl (70-99) H 08/08/24 08:08
Calcium 8.2 mg/dl (8.4-10.2) L 08/08/24 08:08
Patient Allergies
No Known Drug Allergies Allergy (Verified 08/07/24 12:07)
Unknown
Physical Exam
-
Awake and alert, slow to process, mildly confused
pleasant and cooperate
motor decreased tone, b/l UE 4/5, b/l LE 3/5
single breath count to 12
Medications
-
Active Medications
Generic Name Dose Route Start Last Admin
Trade Name Debora LUJANN Reason Stop Dose Admin
Allopurinol 300 mg 08/08/24 08:00 08/08/24 08:31
Allopurinol 300 Mg Tablet PO 09/05/24 07:59 300 mg
DAILY BRYN Administration
Amlodipine Besylate 5 mg 08/08/24 08:00 08/08/24 08:32
Amlodipine 5 Mg Tablet PO 09/05/24 07:59 Not Given
DAILY BRYN
Apixaban 2.5 mg 08/07/24 20:15 08/08/24 08:29
Apixaban (Eliquis) 2.5 Mg Tablet PO 09/04/24 20:14 2.5 mg
BID BRYN Administration
Atorvastatin Calcium 40 mg 08/07/24 22:00 08/07/24 22:23
Atorvastatin (Lipitor) 40 Mg Tablet PO 09/04/24 21:59 40 mg
HS BRYN Administration
Calcium Polycarbophil 1,250 mg 08/07/24 18:26 08/08/24 15:41
Calcium Polycarbophil 625 Mg Tablet PO 09/04/24 18:25 1,250 mg
BID@0800,1600 BRYN Administration
Cholecalciferol 125 mcg 08/08/24 12:00 08/08/24 11:51
Cholecalciferol (Vitamin D3) 125 Mcg Tablet (5,000 Units) PO 09/05/24 11:59 125 mcg
NOON BRYN Administration
Famotidine 20 mg 08/08/24 08:00 08/08/24 08:31
Famotidine 20 Mg Tablet PO 09/05/24 07:59 20 mg
DAILY BRYN Administration
Finasteride 5 mg 08/07/24 18:26 08/07/24 19:43
Finasteride 5 Mg Tablet PO 09/04/24 18:25 5 mg
QPM BRYN Administration
Loperamide HCl 2 mg 08/07/24 18:26
Loperamide 2 Mg Capsule PO 09/04/24 18:25
Q4HPRN PRN
loose stool
Memantine 10 mg 08/07/24 20:00 08/08/24 08:29
Memantine 10 Mg Tablet PO 09/04/24 19:59 10 mg
BID BRYN Administration
Multivitamins Therapeutic 1 tablet 08/08/24 08:00 08/08/24 08:29
Multivitamin Tablet PO 09/05/24 07:59 1 tablet
DAILY BRYN Administration
Olmesartan 5 mg 08/08/24 08:00 08/08/24 08:29
Olmesartan 20 Mg Tablet PO 09/05/24 07:59 5 mg
DAILY BRYN Administration
Oseltamivir Phosphate 30 mg 08/07/24 20:00 08/08/24 08:31
Oseltamivir (Tamiflu) 30 Mg Capsule PO 08/12/24 19:59 30 mg
BID BRYN Administration
Paroxetine HCl 30 mg 08/08/24 08:00 08/08/24 08:29
Paroxetine 30 Mg Tablet PO 09/05/24 07:59 30 mg
DAILY BRYN Administration
Pyridostigmine Rudyard 120 mg 08/08/24 08:00 08/08/24 08:31
Pyridostigmine 60 Mg Tablet PO 09/05/24 07:59 120 mg
DAILY BRYN Administration
Pyridostigmine Rudyard 90 mg 08/07/24 18:26 08/08/24 15:41
Pyridostigmine 60 Mg Tablet PO 09/04/24 18:25 90 mg
BID@1200,1600 BRYN Administration
Pyridostigmine Rudyard 60 mg 08/07/24 20:00 08/07/24 20:08
Pyridostigmine 60 Mg Tablet PO 09/04/24 19:59 60 mg
DAILY@1999 BRYN Administration
Sodium Chloride 0 flush 08/07/24 19:00
Sodium Chloride 0.9% (Flush) Syringe IV 09/04/24 18:59
PER PROTOCOL BRYN
Tamsulosin HCl 0.8 mg 08/07/24 18:26 08/07/24 19:43
Tamsulosin 0.4 Mg Capsule PO 09/04/24 18:25 0.8 mg
QPM BRYN Administration
Home Medications
�Medication �Instructions �Recorded
allopurinol 300 mg tablet 300 mg PO DAILY Gout 01/09/20
calcium polycarbophil 625 mg 1,250 mg PO BID@0800,1600 01/09/20
tablet (Fiber-Tabs) Constipation
finasteride 5 mg tablet 5 mg PO QPM Urinary issue 01/09/20
pyridostigmine bromide 60 mg tablet 60 mg PO DAILY@1999 Myasthenia 01/09/20
gravis
pyridostigmine bromide 60 mg tablet 90 mg PO BID@1200,1600 Myasthenia 01/09/20
gravis
tamsulosin 0.4 mg capsule 0.8 mg PO QPM Urinary issue 01/09/20
apixaban 5 mg tablet (Eliquis) 5 mg PO BID 05/02/24
atorvastatin 40 mg tablet 40 mg PO HS 05/02/24
memantine 10 mg tablet 10 mg PO BID 05/02/24
amlodipine 5 mg tablet 5 mg PO DAILY 08/07/24
cholecalciferol (vitamin D3) 125 125 mcg PO NOON 08/07/24
mcg (5,000 unit) tablet
famotidine 20 mg tablet 20 mg PO DAILY 08/07/24
loperamide 2 mg capsule 2 mg PO Q4HPRN PRN loose stool 08/07/24
mahkcqeuhosr-emfowtoe-hodtiz tablet 1 tab PO DAILY 08/07/24
olmesartan 5 mg tablet 5 mg PO DAILY 08/07/24
paroxetine HCl 30 mg tablet 30 mg PO DAILY 08/07/24
povidone (PF) 0.5 % eye drops 1 drp ophthalmic (eye) BID 08/07/24
(iVizia (PF))
pyridostigmine bromide 60 mg tablet 120 mg PO DAILY 08/07/24
[2024-08-08 16:42] LABS: HCO3 22.2 mmol/L (21-28); O2 Saturation % 98.4 % (94-98); PCO2 35 mmHg (35-48); PO2 79 mmHg (83-108); pH 7.41 (7.35-7.45)
[2024-08-08] MEDS: FLOMAX 0.8 MG PO (17:09)
[2024-08-08] MEDS: PROSCAR 5 MG PO (17:09)
[2024-08-08] MEDS: GAMMAGARD 300 IV (17:29)
--- NOTE | 2024-08-08 17:30 | PTCARENOTE ---
Patient AAOX1, VSS, patient sitting up in bed, eating dinner with family at bedside. Immune Globulin started per standing order. Patient in NAD. Call Rivera in reach. safety maintained. will continue to monitor.
[2024-08-08] MEDS: TYLENOL 325 MG PO (17:50)
[2024-08-08] MEDS: BENADRYL 25 MG PO (17:51)
[2024-08-08] MEDS: MESTINON 60 MG PO (20:37)
[2024-08-08] MEDS: LIPITOR 40 MG PO (21:02)
--- NOTE | 2024-08-08 23:43 | PTCARENOTE ---
Received patient from around 2229. Patient lethargic upon arrival, received PRN Benadryl prior to transfer. Patient responsive to tactile stimuli, no s/s of pain noted. 100% AV paced on the monitor. Patient on 3L o2 nc, sat'ing 98-100%. Family
has CPAP from home for patient overnight. RN notified RT. Lungs diminished throughout, poor respiratory effort. BS active x4. CC #25 intact, placed this evening per transferring RN. MASD noted to abdominal folds and groin, will continue to apply
barrier cream. Patient resting in bed with observed comfort. Will continue to monitor.
[2024-08-09] VITALS (29 sets, daily range): BP systolic 108–175; BP diastolic 48–104; BMI 36.2
[2024-08-09 04:14] LABS: % Basophils 0.6 % (0-2); % Eosinophils 3.3 % (0-6); % Immature Granulocytes 0.3 % (0-0.5); % Lymphocytes 35.4 % (20.5-51.1); % Monocytes 12.8 % (1.7-9.3); % Neutrophils 47.6 % (42.2-75.2); Absolute Eosinophils 0.1 10^3/uL (0-0.7); Absolute Lymphocytes 1.3 10^3/uL (1.2-3.4); Absolute Monocytes 0.5 10^3/uL (0.1-0.6); Absolute Neutrophils 1.7 10^3/uL (1.4-6.5); Hematocrit 29.5 % (39.0-52.0); Hemoglobin 9.8 g/dL (13.0-18.0); Mean Corp Hgb Conc. 33.2 g/dL (33.0-37.0); Mean Corpuscular Hgb 32.2 pg (27.0-31.0); Mean Platelet Volume 10.3 fL (7.4-10.4); Nucleated Red Blood Cells % 0 % (-); Platelet Count 108 10^3/uL (130-400); Red Blood Cell Count 3.04 10^6/uL (4.70-6.10); Red Cell Dist. Width 14.2 % (11.5-14.5); White Blood Cell Count 3.6 10^3/uL (4.8-10.8)
[2024-08-09 04:38] LABS: Blood Urea Nitrogen 39 mg/dl (9-20); Calcium 8.1 mg/dl (8.4-10.2); Carbon Dioxide 22 mmol/L (22-30); Chloride 111 mmol/L (98-107); Estimated Creatinine Clearance 47 ml/min; Glucose 109 mg/dl (70-99); Potassium 4.2 mmol/L (3.5-5.1); Sodium 135 mmol/L (135-145); eGFR 42.49
[2024-08-09] MEDS: THERAGRAN 1 TABLET PO (09:01)
[2024-08-09] MEDS: BENICAR 5 MG PO (09:01)
[2024-08-09] MEDS: ZYLOPRIM 300 MG PO (09:01)
[2024-08-09] MEDS: FIBERCON 1250 MG PO ×2 (09:01→17:08)
[2024-08-09] MEDS: NORVASC 5 MG PO (09:03)
[2024-08-09] MEDS: MESTINON 120 MG PO (09:03)
[2024-08-09] MEDS: TAMIFLU 30 MG PO ×2 (09:03→20:34)
[2024-08-09] MEDS: ELIQUIS 2.5 MG PO ×2 (09:03→20:33)
[2024-08-09] MEDS: PEPCID 20 MG PO (09:03)
[2024-08-09] MEDS: PAXIL 30 MG PO (09:04)
[2024-08-09] MEDS: NAMENDA 10 MG PO ×2 (09:04→20:34)
--- NOTE | 2024-08-09 09:23 | W.PN.HOSP.TC ---
Today's Communication/Plan
-
Continue IV immunoglobulin.
Assessment / Plan
Assessment / Plan
Physical exam:
General: Acutely ill
HEENT: Normocephalic, Atraumatic and Moist Mucous Membranes
Respiratory: Clear to Auscultation; Negative Wheezes, Rales or Rhonchi
Cardiac: Regular Rhythm and S1/S2
GI: Soft, Nontender and Nondistended
Musculoskeletal: No Clubbing, No Cyanosis and No Edema
Neuro: Awake, Alert and disoriented. No ptosis. Generalized weakness symmetrically. No cranial nerve deficits.
Psych: Calm, limited judgment and insight.
A/P:
#Myasthenia gravis
With influenza and generalized weakness, multiple falls, and intermittent slurred speech I am very concerned about myasthenia gravis exacerbation. Discussed with neurology due to my concerns.
Will follow-up with NIF and vital capacity.
Continue pyridostigmine
Appreciate neurology consult
Continue IV immunoglobulin
Discussed with neurology today and okay to transfer him out of IMU
PT OT eval
# Influenza A
Continue Tamiflu
Chest x-ray no evidence of pneumonia
#Respiratory insufficiency
Supplemental oxygen
Monitor respiratory status closely
# Leukopenia, mild thrombocytopenia
-Likely secondary to influenza
-Continue to monitor
Chronic kidney disease
-Creatinine of 1.7 from 1.5 previously. Creatinine 1.6 today
-Single IV fluid bolus
Chronic diarrhea/loose stool
-At baseline
-Continue loperamide
History of AV block status post pacemaker
Paroxysmal atrial fibrillation
-Continue Eliquis
Essential hypertension
-Continue amlodipine
-Continue olmesartan
Chronic HFmrEF
-Prior ejection fraction 50%
Dementia
-Continue memantine, paroxetine
GERD
-Continue Pepcid
Hypercholesteremia
-Continue statin
BPH
-Continue tamsulosin, finasteride
Osteoarthritis
Obstructive sleep apnea
Peripheral neuropathy
Gout
-Continue allopurinol
Chronic anemia
-Hemoglobin mild drift but suspect hemodilutional. Hb 10.7--> 9.8
Obesity
Full code
DVT prophylaxis�Eliquis
Total time spent on today's encounter was 52 minutes which included time spent in counseling the patient/family regarding diagnosis and treatment plan as listed above, goals of care, and symptom management. Case was discussed with nursing staff,
specialists, and care coordinators/case management. All labs and imaging personally reviewed by me. Remainder the time spent in detailed review of previous records, lab data, imaging, and other medical provider documentation.
Anticipated Discharge: 24 - 48 hours
Subjective/Interval History
-
Date of Service: August 09, 2024
Patient feels better today. Supplemental oxygen. Afebrile
Objective Data
-
Labs:
Laboratory Results
08/09/24
04:02
WBC 3.6 L
Hgb 9.8 L
Hct 29.5 L
Plt Count 108 L
Sodium 135
Potassium 4.2
Chloride 111 H
Carbon Dioxide 22
BUN 39 H
Creatinine 1.6 H
Glucose 109 H
Calcium 8.1 L
Vital Signs:
Vital Signs
Temp Pulse Resp BP Pulse Ox
97.7 F 53 13 152/60 96
08/09/24 07:54 08/09/24 06:00 08/09/24 06:00 08/09/24 06:00 08/09/24 04:00
[2024-08-09] MEDS: VITAMIN D3 (cholecalciferol) 125 MCG PO (12:37)
[2024-08-09] MEDS: MESTINON 90 MG PO ×2 (12:37→17:08)
--- NOTE | 2024-08-09 15:45 | W.PN.NEURO.1 ---
Today's Communication / Plan
-
ok to downgrade
Neuro Assessment/Plan
Assessment
myasthenia exacerbation, due to flu
will start IVIG 30 g/day day 2
pre medicate with tylenol/benadryl
continue Mestinon 120/90/90/60 mg
Afib on Eliquis also good for DVT ppx in IVIG
NIF -20, vital capacity 2.1L (17.5 ml/kg)
Plan
continue IVIG 30 g/day, day 2 planned, though given his improvement may not need the full 5 days
daily NIF/VC
Subjective/Objective
Subjective Data
Date of Service: August 09, 2024
feels stronger
tolerating IVIG
not short of breath
Objective Data
Vital Signs
Temp Pulse Resp BP Pulse Ox
36.7 C 51 17 147/53 96
08/09/24 15:14 08/09/24 12:00 08/09/24 12:00 08/09/24 12:00 08/09/24 08:10
Lab Results
08/09/24 04:02
08/09/24 04:02
Sodium 135 mmol/L (135-145) 08/09/24 04:02
Potassium 4.2 mmol/L (3.5-5.1) 08/09/24 04:02
BUN 39 mg/dl (9-20) H 08/09/24 04:02
Glucose 109 mg/dl (70-99) H 08/09/24 04:02
Calcium 8.1 mg/dl (8.4-10.2) L 08/09/24 04:02
Patient Allergies
No Known Drug Allergies Allergy (Verified 08/07/24 12:07)
Unknown
Physical Exam
-
Awake and alert, slow to process, mildly confused
pleasant and cooperate
motor decreased tone, b/l UE 5-/5, b/l LE 4/5
single breath count to 20
--- NOTE | 2024-08-09 15:46 | CM ---
Patient with Hx Myasthenia gravis With Dx influenza, generalized weakness, multiple falls, and intermittent slurred speech. O2 3L. Receiving IVIG. PT/OT; requires assist of 2, recommend skilled rehab. Per nurse assessment; confused, forgetful.
Phone call to [facility] and son Issa; left message requesting callback to discuss rehab needs.
Spoke with [facility]ia[facility]; they will consider this patient. Agree to request Physiatry Eval.
Plan follow up with /son re; rehab options.
Plan follow up after seen by Physiatry.
[2024-08-09] MEDS: PROSCAR 5 MG PO (17:08)
[2024-08-09] MEDS: FLOMAX 0.8 MG PO (17:08)
[2024-08-09] MEDS: GAMMAGARD 300 IV (17:54)
[2024-08-09] MEDS: TYLENOL 325 MG PO (18:01)
[2024-08-09] MEDS: BENADRYL 25 MG PO (18:01)
--- NOTE | 2024-08-09 19:05 | PTCARENOTE ---
OOB few hours this afternoon. Remains on 2L NC, Harsh moist NPC. Rhonchi noted. 100% AV paced rates 50s-60. Appetite good this pm. Condom cath attempted x2 - failed. Good urine output. IVIG initiated this pm. Family present all day.
[2024-08-09] MEDS: LIPITOR 40 MG PO (20:34)
[2024-08-09] MEDS: MESTINON 60 MG PO (20:34)
[2024-08-10] VITALS (16 sets, daily range): BP systolic 137–169; BP diastolic 49–69
[2024-08-10] MEDS: MESTINON 120 MG PO (09:04)
[2024-08-10] MEDS: ZYLOPRIM 300 MG PO (09:04)
[2024-08-10] MEDS: TAMIFLU 30 MG PO ×2 (09:05→20:20)
[2024-08-10] MEDS: ELIQUIS 2.5 MG PO ×2 (09:05→20:20)
[2024-08-10] MEDS: BENICAR 5 MG PO (09:05)
[2024-08-10] MEDS: PEPCID 20 MG PO (09:05)
[2024-08-10] MEDS: NORVASC 5 MG PO (09:06)
[2024-08-10] MEDS: NAMENDA 10 MG PO ×2 (09:06→20:20)
[2024-08-10] MEDS: THERAGRAN 1 TABLET PO (09:06)
[2024-08-10] MEDS: PAXIL 30 MG PO (09:06)
[2024-08-10] MEDS: FIBERCON 1250 MG PO ×2 (09:06→16:54)
[2024-08-10] MEDS: DESENEX/MITRAZOL/ZEASORB 1 APPLIC TOPICAL (09:06)
--- NOTE | 2024-08-10 09:20 | W.PN.HOSP.TC ---
Addendum entered and electronically signed by Ge Green MD 08/10/24 13:06:
Acute hypoxic respiratory failure, resolved
Pancytopenia
Chronic kidney disease stage III
Original Note:
Today's Communication/Plan
-
IV immunoglobin
Assessment / Plan
Assessment / Plan
Physical exam:
General: Acutely ill
HEENT: Normocephalic, Atraumatic and Moist Mucous Membranes
Respiratory: Clear to Auscultation; Negative Wheezes, Rales or Rhonchi
Cardiac: Regular Rhythm and S1/S2
GI: Soft, Nontender and Nondistended
Musculoskeletal: No Clubbing, No Cyanosis and No Edema
Neuro: Awake, Alert and disoriented. No ptosis. Generalized weakness symmetrically. No cranial nerve deficits.
Psych: Calm, limited judgment and insight.
A/P:
#Myasthenia gravis
With influenza and generalized weakness, multiple falls, and intermittent slurred speech I am very concerned about myasthenia gravis exacerbation. Discussed with neurology due to my concerns.
Will follow-up with NIF and vital capacity.
Continue pyridostigmine
Appreciate neurology consult
Continue IV immunoglobulin
Discussed with neurology today and will continue IV immunoglobin per neurology guidance
PT OT eval
Discussed with family at bedside
Plan to go to acute rehab after finishing IVIg
# Influenza A
Continue Tamiflu
Chest x-ray no evidence of pneumonia
#Respiratory insufficiency
Supplemental oxygen
Monitor respiratory status closely
# Leukopenia, mild thrombocytopenia
-Likely secondary to influenza
-Continue to monitor
Chronic kidney disease
-Creatinine of 1.7 from 1.5 previously. Creatinine 1.6 today
-Single IV fluid bolus
Chronic diarrhea/loose stool
-At baseline
-Continue loperamide
History of AV block status post pacemaker
Paroxysmal atrial fibrillation
-Continue Eliquis
Essential hypertension
-Continue amlodipine
-Continue olmesartan
Chronic HFmrEF
-Prior ejection fraction 50%
Dementia
-Continue memantine, paroxetine
GERD
-Continue Pepcid
Hypercholesteremia
-Continue statin
BPH
-Continue tamsulosin, finasteride
Osteoarthritis
Obstructive sleep apnea
Peripheral neuropathy
Gout
-Continue allopurinol
Chronic anemia
-Hemoglobin mild drift but suspect hemodilutional. Hb 10.7--> 9.8
Obesity
Full code
DVT prophylaxis�Eliquis
Total time spent on today's encounter was 52 minutes which included time spent in counseling the patient/family regarding diagnosis and treatment plan as listed above, goals of care, and symptom management. Case was discussed with nursing staff,
specialists, and care coordinators/case management. All labs and imaging personally reviewed by me. Remainder the time spent in detailed review of previous records, lab data, imaging, and other medical provider documentation.
Anticipated Discharge: 24 - 48 hours
Subjective/Interval History
-
Date of Service: August 10, 2024
Patient feels better. On room air today. Afebrile
Objective Data
-
Vital Signs:
Vital Signs
Temp Pulse Resp BP Pulse Ox
98.6 F 56 18 160/69 99
08/10/24 02:57 08/10/24 06:00 08/10/24 06:00 08/10/24 06:00 08/10/24 04:00
I&O
08/09/24 08/10/24 08/11/24
06:59 06:59 06:59
Intake Total 1200 / 1200
Output Total 960 / 960
Balance 240 / 240
--- NOTE | 2024-08-10 09:20 | PN.CDI ---
CDI
- -
CDI:
Physician Documentation Request
Admit Date: 08/08/24 16:11
Dear Doctor Norma,
Please review the following and provide your response in the progress notes.
Clinical Indicators:
- Patient admit for myasthenia gravis exacerbation due to Flu A
- 08/09 PN indicates leukopenia and thrombocytopenia
Laboratory Tests
08/07/24 08/08/24 08/09/24
11:18 08:08 04:02
WBC 4.6 L 4.5 L 3.6 L
RBC 3.29 L 3.02 L 3.04 L
Hgb 10.7 L 9.7 L 9.8 L
Plt Count 118 L 112 L 108 L
Please provide a diagnosis for the above lab values that were monitored and treatment rendered:
Pancytopenia
Clinically insignificant abnormal lab values
Other (please specify)
Use of terms such as suspected, likely, concern for, or probable (associated with a specific diagnosis that is being evaluated, monitored, or treated as if it exists) are acceptable and can be coded in the inpatient setting, when documented at the
time of discharge.
Thank you,
Alecia Michele RN
CDI Specialist
Please use your independent medical judgment in providing your response.
--- NOTE | 2024-08-10 09:53 | PN.CDI ---
CDI
- -
CDI:
Physician Documentation Request
Admit Date: 08/08/24 16:11
Dear Doctor Norma,
Please review the following and provide your response in the progress notes.
Clinical Indicators:
- Patient admit for myasthenia gravis exacerbation due to Flu A
- 08/09 PN 'Respiratory insufficiency'
- 08/08 Neurology 'i have significant concerns for his respiratory capacity'
- Documented VS pulse ox 85%, placed on 5L O2
- 08/07 RN note 'Pt recieved from day shift...on 5L O2'
Please clarify which of the following accurately represents the patient's respiratory status:
Acute hypoxic respiratory failure, resolved
Hypoxia
Other (please specify)
Additional information for Respiratory Failure:
Recognized criteria for Respiratory Failure (Source: [facility] Hospitalist Apr 2013)
ABGs: (1 or more) Symptoms Please indicate type if known
1. p)2 <60 or RA SPO2 <91% on RA 1. Tachypnea, SOB, dyspnea Hypoxic
2. pCO2 50 and pH <7.35 2. Use of accessory muscles Hypercapnic
3. pO2 decrease of pCO2 increase by 3. Pallor or cyanosis Hypoxic and Hypercapnic
10 mmHg from baseline if known 4. Anxiety or restlessness Unable to determine
5. Unable to speak in full sentences
Supplemental O2 of > 40% (5LPM) Intubation is not required
Use of terms such as suspected, likely, concern for, or probable (associated with a specific diagnosis that is being evaluated, monitored, or treated as if it exists) are acceptable and can be coded in the inpatient setting, when documented at the
time of discharge.
Thank you,
Alecia Michele RN
CDI Specialist
Please use your independent medical judgment in providing your response.
--- NOTE | 2024-08-10 10:07 | PN.CDI ---
CDI
- -
CDI:
Physician Documentation Request
Admit Date: 08/08/24 16:11
Dear Doctor Norma,
Please review the following and provide your response in the progress notes.
Clinical Indicators:
- 08/09 PN 'Chronic kidney disease' without specificity
- Renal labs:
Laboratory Tests
08/07/24 08/08/24 08/09/24
11:18 08:08 04:02
Creatinine 1.7 H 1.6 H 1.6 H
eGFR 39.51 42.49 42.49
Please clarify which of the following accurately represents the patient's renal status:
CKD 3
MIGUEL on CKD 2
Other (please specify)
Criteria for MIGUEL*
1 Increase in serum creatinine by > or = to 0.3 mg/dL (> or = to 26.5 micromol/L) within 48 hours, OR
2 Increase in serum creatinine to > or = to 1.5 times baseline, which is known or presumed to have occurred within 7 days, OR
3 Urine volume < 0.5 nL/kg/hour for six hours
Stages of Chronic Kidney Disease*
Level Description GFR
G1 Normal or High >90
G2 Mildly decreased 60-89
G3a Mildly to moderately decreased 45-59
G3b Moderately to severely decreased 30-44
G4 Severely decreased 15-29
G5 Kidney failure <15
Use of terms such as suspected, likely, concern for, or probable (associated with a specific diagnosis that is being evaluated, monitored, or treated as if it exists) are acceptable and can be coded in the inpatient setting, when documented at the
time of discharge.
Thank you,
Alecia Michele RN
CDI Specialist
Please use your independent medical judgment in providing your response.
*Source: Kidney Disease: Improving Global Outcomes (KDIGO) 2012
[2024-08-10] MEDS: MESTINON 90 MG PO ×2 (12:00→16:55)
[2024-08-10] MEDS: VITAMIN D3 (cholecalciferol) 125 MCG PO (16:54)
[2024-08-10] MEDS: FLOMAX 0.8 MG PO (16:56)
[2024-08-10] MEDS: PROSCAR 5 MG PO (16:56)
[2024-08-10] MEDS: TYLENOL 325 MG PO (17:19)
[2024-08-10] MEDS: BENADRYL 25 MG PO (17:19)
[2024-08-10] MEDS: GAMMAGARD 300 IV (18:12)
--- NOTE | 2024-08-10 18:40 | PTCARENOTE ---
pt received from IMU. IVIG running. VSS. Pt oriented to self, combative and repeating that he does not want to be here. @bedside helping reorient pt. Pt settled down and resting in bed. Alarm in place, call valdes in reach and @bedside. Will
continue to monitor and adjust IVIG titration.
--- NOTE | 2024-08-10 19:15 | PTCARENOTE ---
Assumed care of patient from previous RN - IVIG infusing at this time. During rounds, infusion rate titrated up per protocol orders as patient tolerating infusion and VSS. Call valdes in reach. , daughter and granddaughter at bedside at this time.
Patient appears to be asleep currently. Patient's daughter states that she believes he is awake, but pretending to be asleep because he was just upset with prior to transfer to . Will monitor.
[2024-08-10] MEDS: LIPITOR 40 MG PO (20:20)
[2024-08-10] MEDS: MESTINON 60 MG PO (20:20)
--- NOTE | 2024-08-10 20:28 | PTCARENOTE ---
IVIG infusion complete, patient tolerated well with no complications. and son present at bedside. Patient is awake at this time, conversing with this RN. No complaints at this time. Call valdes in reach, will monitor.
[2024-08-11] VITALS (12 sets, daily range): BP systolic 111–156; BP diastolic 47–69
[2024-08-11] MEDS: DESENEX/MITRAZOL/ZEASORB TOPICAL (06:03)
[2024-08-11] MEDS: NAMENDA 10 MG PO ×2 (08:38→19:59)
[2024-08-11] MEDS: BENICAR 5 MG PO (08:38)
[2024-08-11] MEDS: PEPCID 20 MG PO (08:38)
[2024-08-11] MEDS: FIBERCON 1250 MG PO ×2 (08:38→15:41)
[2024-08-11] MEDS: MESTINON 120 MG PO (08:38)
[2024-08-11] MEDS: TAMIFLU 30 MG PO ×2 (08:39→19:59)
[2024-08-11] MEDS: ELIQUIS 2.5 MG PO ×2 (08:39→19:58)
[2024-08-11] MEDS: PAXIL 30 MG PO (08:39)
[2024-08-11] MEDS: ZYLOPRIM 300 MG PO (08:39)
[2024-08-11] MEDS: NORVASC 5 MG PO (08:39)
[2024-08-11] MEDS: THERAGRAN 1 TABLET PO (08:40)
[2024-08-11] MEDS: DESENEX/MITRAZOL/ZEASORB 1 APPLIC TOPICAL ×2 (08:40→19:58)
--- NOTE | 2024-08-11 09:24 | W.PN.HOSP.TC ---
Today's Communication/Plan
-
IV immunoglobulin.
Assessment / Plan
Assessment / Plan
Physical exam:
General: Acutely ill
HEENT: Normocephalic, Atraumatic and Moist Mucous Membranes
Respiratory: Clear to Auscultation; Negative Wheezes, Rales or Rhonchi
Cardiac: Regular Rhythm and S1/S2
GI: Soft, Nontender and Nondistended
Musculoskeletal: No Clubbing, No Cyanosis and No Edema
Neuro: Awake, Alert and disoriented. No ptosis. Generalized weakness symmetrically. No cranial nerve deficits.
Psych: Calm, limited judgment and insight.
A/P:
Myasthenia gravis exacerbation:
Exacerbation due to influenza
Continue IV immunoglobulin, Day 4 out of 5
Continue pyridostigmine 90 mg p.o. twice a day and 60 mg p.o. daily
Appreciated neurology consult and follow-up
NIF -20
Vital capacity 2.1 L (17.5 mL/kg)
PT OT
Discussed with family at bedside today
Plan to go to rehab once medically stable
Acute hypoxic respiratory failure:
Resolved
On room air
Influenza A:
Continue Tamiflu renally dosed, Day 4 out of 5
Pancytopenia:
Suspect viral related
Continue to monitor counts closely
Should recover after infection but if not then we will require further workup--> it is already improving.
Chronic kidney disease stage III:
Avoid nephrotoxic
Monitor renal function
Paroxysmal atrial fibrillation:
Not on rate control agent
Status post pacemaker in the past
Continue anticoagulation, Eliquis 2.5 mg twice a day
Chronic HFmrEF:
Appears euvolemic
Continue to monitor ins and outs and daily weight
Hypertension:
Continue olmesartan 5 mg p.o. day
Continue amlodipine 5 mg p.o. daily
Hyperlipidemia:
Continue atorvastatin 40 minutes p.o. nightly
Dementia:
Continue memantine 10 mg p.o. twice a day
BPH:
Continue Flomax 0.8 mg p.o. nightly
Depression:
Continue paroxetine 30 mg p.o. daily
Gout:
Continue allopurinol but decrease to renally dose
GERD:
Continue Pepcid
DVT prophylaxis:
Eliquis
CODE STATUS
Full code
Total time spent on today's encounter was 52 minutes which included time spent in counseling the patient/family regarding diagnosis and treatment plan as listed above, goals of care, and symptom management. Case was discussed with nursing staff,
specialists, and care coordinators/case management. All labs and imaging personally reviewed by me. Remainder the time spent in detailed review of previous records, lab data, imaging, and other medical provider documentation.
Anticipated Discharge: > 48 hours
Subjective/Interval History
-
Date of Service: August 11, 2024
Feels better overall. On room air. Less shortness of breath. Afebrile
Objective Data
-
Labs:
Laboratory Results
08/11/24
08:34
WBC Pending
Hgb Pending
Hct Pending
Plt Count Pending
Sodium Pending
Potassium Pending
Chloride Pending
Carbon Dioxide Pending
BUN Pending
Creatinine Pending
Glucose Pending
Calcium Pending
Vital Signs:
Vital Signs
Temp Pulse Resp BP Pulse Ox
97.4 F 63 16 154/69 99
08/11/24 07:16 08/11/24 07:16 08/11/24 07:16 08/11/24 07:16 08/11/24 07:16
I&O
08/10/24 08/11/24 08/12/24
06:59 06:59 06:59
Intake Total 1200 / 1200 120 / 120
Output Total 960 / 960
Balance 240 / 240 120 / 120
[2024-08-11 09:59] LABS: Hematocrit 30.6 % (39.0-52.0); Hemoglobin 9.8 g/dL (13.0-18.0); Mean Corpuscular Hgb 31.2 pg (27.0-31.0); Mean Corpuscular Volume 97.5 fL (80.0-94.0); Mean Platelet Volume 10.9 fL (7.4-10.4); Platelet Count 143 10^3/uL (130-400); Red Blood Cell Count 3.14 10^6/uL (4.70-6.10); Red Cell Dist. Width 14.1 % (11.5-14.5); White Blood Cell Count 3.6 10^3/uL (4.8-10.8)
[2024-08-11 10:17] LABS: Blood Urea Nitrogen 45 mg/dl (9-20); Calcium 8.3 mg/dl (8.4-10.2); Carbon Dioxide 24 mmol/L (22-30); Chloride 112 mmol/L (98-107); Estimated Creatinine Clearance 47 ml/min; Glucose 93 mg/dl (70-99); Potassium 4.3 mmol/L (3.5-5.1); Sodium 135 mmol/L (135-145); eGFR 42.49
[2024-08-11] MEDS: VITAMIN D3 (cholecalciferol) 125 MCG PO (11:33)
[2024-08-11] MEDS: MESTINON 90 MG PO ×2 (11:35→15:49)
[2024-08-11] MEDS: FLOMAX 0.8 MG PO (15:51)
[2024-08-11] MEDS: PROSCAR 5 MG PO (15:51)
[2024-08-11] MEDS: BENADRYL 25 MG PO (18:00)
[2024-08-11] MEDS: TYLENOL 325 MG PO (18:00)
[2024-08-11] MEDS: GAMMAGARD 300 IV (18:01)
[2024-08-11] MEDS: MESTINON 60 MG PO (19:59)
[2024-08-11] MEDS: LIPITOR 40 MG PO (20:00)
[2024-08-12] VITALS (17 sets, daily range): BP systolic 120–176; BP diastolic 54–94
[2024-08-12 07:01] LABS: % Basophils 0.5 % (0-2); % Eosinophils 3.9 % (0-6); % Immature Granulocytes 0.2 % (0-0.5); % Lymphocytes 34.8 % (20.5-51.1); % Monocytes 9.4 % (1.7-9.3); % Neutrophils 51.2 % (42.2-75.2); Absolute Eosinophils 0.2 10^3/uL (0-0.7); Absolute Lymphocytes 1.5 10^3/uL (1.2-3.4); Absolute Monocytes 0.4 10^3/uL (0.1-0.6); Absolute Neutrophils 2.2 10^3/uL (1.4-6.5); Hematocrit 29.7 % (39.0-52.0); Hemoglobin 9.4 g/dL (13.0-18.0); Mean Corp Hgb Conc. 31.6 g/dL (33.0-37.0); Mean Corpuscular Hgb 30.9 pg (27.0-31.0); Mean Corpuscular Volume 97.7 fL (80.0-94.0); Mean Platelet Volume 10.5 fL (7.4-10.4); Nucleated Red Blood Cells % 0 % (-); Platelet Count 141 10^3/uL (130-400); Red Blood Cell Count 3.04 10^6/uL (4.70-6.10); Red Cell Dist. Width 14.2 % (11.5-14.5); White Blood Cell Count 4.3 10^3/uL (4.8-10.8)
[2024-08-12 07:33] LABS: Blood Urea Nitrogen 51 mg/dl (9-20); Calcium 8.4 mg/dl (8.4-10.2); Carbon Dioxide 25 mmol/L (22-30); Chloride 114 mmol/L (98-107); Estimated Creatinine Clearance 47 ml/min; Glucose 103 mg/dl (70-99); Potassium 4.8 mmol/L (3.5-5.1); Sodium 139 mmol/L (135-145); eGFR 42.49
[2024-08-12] MEDS: PAXIL 30 MG PO (08:22)
[2024-08-12] MEDS: DESENEX/MITRAZOL/ZEASORB 1 APPLIC TOPICAL ×2 (08:22→21:20)
[2024-08-12] MEDS: THERAGRAN 1 TABLET PO (08:22)
[2024-08-12] MEDS: TAMIFLU 30 MG PO (08:23)
[2024-08-12] MEDS: FIBERCON 1250 MG PO ×2 (08:23→15:33)
[2024-08-12] MEDS: PEPCID 20 MG PO (08:24)
[2024-08-12] MEDS: ELIQUIS 2.5 MG PO ×2 (08:28→21:19)
[2024-08-12] MEDS: NAMENDA 10 MG PO ×2 (08:28→21:19)
[2024-08-12] MEDS: BENICAR 5 MG PO (08:28)
[2024-08-12] MEDS: MESTINON 120 MG PO (08:29)
--- NOTE | 2024-08-12 08:46 | W.PN.HOSP.TC ---
Today's Communication/Plan
-
IV immunoglobulin. Antihypertensive medications.
Assessment / Plan
Assessment / Plan
Physical exam:
General: Acutely ill
HEENT: Normocephalic, Atraumatic and Moist Mucous Membranes
Respiratory: Clear to Auscultation; Negative Wheezes, Rales or Rhonchi
Cardiac: Regular Rhythm and S1/S2
GI: Soft, Nontender and Nondistended
Musculoskeletal: No Clubbing, No Cyanosis and No Edema
Neuro: Awake, Alert and disoriented. No ptosis. Generalized weakness symmetrically. No cranial nerve deficits.
Psych: Calm, limited judgment and insight.
A/P:
Myasthenia gravis exacerbation:
Exacerbation due to influenza
Continue IV immunoglobulin, today it will be last dose- Day 5 out of 5 tonight.
Continue pyridostigmine 90 mg p.o. twice a day and 60 mg p.o. daily
Appreciated neurology consult and follow-up
NIF -20
Vital capacity 2.1 L (17.5 mL/kg)
PT OT
Discussed with family at bedside prior
Plan to go to rehab once medically stable
Acute hypoxic respiratory failure:
Resolved
On room air
Influenza A:
Continue Tamiflu renally dosed, today it will be last dose-Day 5 out of 5
Pancytopenia:
Suspect viral related
It is already improving as viral infection improving.
Continue to trend
Chronic kidney disease stage III:
Avoid nephrotoxic
Monitor renal function
Paroxysmal atrial fibrillation:
Not on rate control agent
Status post pacemaker in the past
Continue anticoagulation, Eliquis 2.5 mg twice a day
Chronic HFmrEF:
Appears euvolemic
Continue to monitor ins and outs and daily weight
Hypertension:
Continue olmesartan 5 mg p.o. day
Continue amlodipine 5 mg p.o. daily (was not taking as there was a hold)
Add IV hydralazine as needed
Hyperlipidemia:
Continue atorvastatin 40 mg p.o. nightly
Dementia:
Continue memantine 10 mg p.o. twice a day
BPH:
Continue Flomax 0.8 mg p.o. nightly
Depression:
Continue paroxetine 30 mg p.o. daily
Gout:
Continue allopurinol but decrease to renally dose
GERD:
Continue Pepcid
DVT prophylaxis:
Eliquis
CODE STATUS
Full code
Total time spent on today's encounter was 52 minutes which included time spent in counseling the patient/family regarding diagnosis and treatment plan as listed above, goals of care, and symptom management. Case was discussed with nursing staff,
specialists, and care coordinators/case management. All labs and imaging personally reviewed by me. Remainder the time spent in detailed review of previous records, lab data, imaging, and other medical provider documentation.
Anticipated Discharge: 24 - 48 hours
Subjective/Interval History
-
Date of Service: August 12, 2024
Patient no new complaints. No shortness of breath. On room air. Blood pressure elevated but has not taken his medications. Afebrile
Objective Data
-
Labs:
Laboratory Results
08/12/24
06:38
WBC 4.3 L
Hgb 9.4 L
Hct 29.7 L
Plt Count 141
Sodium 139
Potassium 4.8
Chloride 114 H
Carbon Dioxide 25
BUN 51 H
Creatinine 1.6 H
Glucose 103 H
Calcium 8.4
Vital Signs:
Vital Signs
Temp Pulse Resp BP Pulse Ox
97 F 55 20 176/71 100
08/12/24 08:36 08/12/24 08:36 08/12/24 08:36 08/12/24 08:36 02/16/25 08:36
I&O
08/11/24 08/12/24 08/13/24
06:59 06:59 06:59
Intake Total 120 / 120 1140 / 1140
Output Total 100 / 100
Balance 120 / 120 1040 / 1040
[2024-08-12] MEDS: NORVASC 5 MG PO (08:52)
[2024-08-12] MEDS: ZYLOPRIM 100 MG PO (08:53)
[2024-08-12] MEDS: VITAMIN D3 (cholecalciferol) 125 MCG PO (11:35)
[2024-08-12] MEDS: MESTINON 90 MG PO ×2 (12:37→15:33)
[2024-08-12] MEDS: FLOMAX 0.8 MG PO (17:28)
[2024-08-12] MEDS: PROSCAR 5 MG PO (17:28)
[2024-08-12] MEDS: TYLENOL 325 MG PO (17:55)
[2024-08-12] MEDS: BENADRYL 25 MG PO (17:55)
[2024-08-12] MEDS: GAMMAGARD 300 IV (18:04)
[2024-08-12] MEDS: MESTINON 60 MG PO (21:19)
[2024-08-12] MEDS: LIPITOR 40 MG PO (21:19)
[2024-08-13 03:00] VITALS: BP 112/82
--- NOTE | 2024-08-13 06:47 | W.PN.HOSP.TC ---
Today's Communication/Plan
-
cont blood pressure control
mestinon
discharge planning Acute Rehab
Assessment / Plan
Assessment / Plan
Physical exam:
General: No acute distress appears comfortable at this time
HEENT: Normocephalic, Atraumatic and Moist Mucous Membranes, Hard of Hearing
Respiratory: Clear to Auscultation; Negative Wheezes, Rales or Rhonchi
Cardiac: Regular Rhythm and S1/S2
GI: Soft, Nontender and Nondistended
Musculoskeletal: No Clubbing, No Cyanosis and No Edema
Neuro: Awake Alert Conversant
Psych: Calm, limited judgment and insight.
A/P: 84M pAfib Dementia MG CKD3 HFmrEF HTN Gout here with for Myasthenia Gravis exacerbation by Flu infection.
Myasthenia gravis exacerbation:
Exacerbation due to influenza
completed 5 days IV immunoglobulin
Continue pyridostigmine 90 mg p.o. twice a day and 60 mg p.o. daily
Appreciated neurology consult and follow-up
PT OT eval appreciated
PMR eval appreciated appropriate for Acute Rehab
Acute hypoxic respiratory failure:
Resolved
On room air
Influenza A:
Completed 5 days Tamiflu renally dosed
Pancytopenia:
likely viral related, improving with resolution infection
Chronic kidney disease stage III:
Avoid nephrotoxic
Monitor renal function
Paroxysmal atrial fibrillation:
Not on rate control agent
Status post pacemaker in the past
Continue anticoagulation, Eliquis 2.5 mg twice a day
Chronic HFmrEF:
Appears euvolemic
Continue to monitor ins and outs and daily weight
Hypertension:
Continue olmesartan 5 mg p.o. day
Continue amlodipine 5 mg p.o. daily
Add IV hydralazine as needed
Hyperlipidemia:
Continue atorvastatin 40 mg p.o. nightly
Dementia:
Continue memantine 10 mg p.o. twice a day
BPH:
Continue Flomax 0.8 mg p.o. nightly
Depression:
Continue paroxetine 30 mg p.o. daily
Gout:
Continue allopurinol but decrease to renally dose
GERD:
Continue Pepcid
DVT prophylaxis:
Eliquis
CODE STATUS
Full code
Discharge planning Acute Rehab
Discussed with patient and patient's family (patient's Rebeka, daughter Dianelys, and son-in-law Levi)
I spent a total of 40 minutes with the patient or on the floor. More than 50% of this time involved counseling and coordination of care.
Anticipated Discharge: Within 24 hours
Subjective/Interval History
-
Date of Service: August 13, 2024
No acute distress sitting up comfortably in chair. Overall patient reports feeling well. Denies new acute issues. Family (patient's Rebeka, daughter Dianelys, and son-in-law Levi) present during evaluation.
Objective Data
-
Labs:
Laboratory Results
08/13/24
06:00
WBC Pending
Hgb Pending
Hct Pending
Plt Count Pending
Sodium Pending
Potassium Pending
Chloride Pending
Carbon Dioxide Pending
BUN Pending
Creatinine Pending
Glucose Pending
Calcium Pending
Vital Signs:
Vital Signs
Temp Pulse Resp BP Pulse Ox
97.8 F 68 20 112/82 100
08/13/24 03:00 08/13/24 03:00 08/13/24 03:00 08/13/24 03:00 08/13/24 03:00
I&O
08/11/24 08/12/24 08/13/24
06:59 06:59 06:59
Intake Total 120 / 120 1140 / 1140 2760 / 2760
Output Total 100 / 100
Balance 120 / 120 1040 / 1040 2760 / 2760
[2024-08-13 07:38] VITALS: BP 154/63
[2024-08-13 07:45] LABS: % Basophils 0.5 % (0-2); % Eosinophils 3.6 % (0-6); % Immature Granulocytes 0.2 % (0-0.5); % Lymphocytes 32.4 % (20.5-51.1); % Monocytes 8.5 % (1.7-9.3); % Neutrophils 54.8 % (42.2-75.2); Absolute Eosinophils 0.2 10^3/uL (0-0.7); Absolute Lymphocytes 1.3 10^3/uL (1.2-3.4); Absolute Monocytes 0.4 10^3/uL (0.1-0.6); Absolute Neutrophils 2.3 10^3/uL (1.4-6.5); Hematocrit 30.2 % (39.0-52.0); Hemoglobin 9.5 g/dL (13.0-18.0); Mean Corp Hgb Conc. 31.5 g/dL (33.0-37.0); Mean Corpuscular Hgb 30.9 pg (27.0-31.0); Mean Corpuscular Volume 98.4 fL (80.0-94.0); Mean Platelet Volume 10.7 fL (7.4-10.4); Nucleated Red Blood Cells % 0 % (-); Platelet Count 146 10^3/uL (130-400); Red Blood Cell Count 3.07 10^6/uL (4.70-6.10); Red Cell Dist. Width 14.4 % (11.5-14.5); White Blood Cell Count 4.1 10^3/uL (4.8-10.8)
[2024-08-13 08:03] LABS: Blood Urea Nitrogen 53 mg/dl (9-20); Calcium 8.3 mg/dl (8.4-10.2); Carbon Dioxide 23 mmol/L (22-30); Chloride 113 mmol/L (98-107); Estimated Creatinine Clearance 47 ml/min; Glucose 102 mg/dl (70-99); Potassium 4.5 mmol/L (3.5-5.1); Sodium 138 mmol/L (135-145); eGFR 42.49
[2024-08-13] MEDS: NAMENDA 10 MG PO ×2 (08:35→20:10)
[2024-08-13] MEDS: ELIQUIS 2.5 MG PO ×2 (08:35→20:09)
[2024-08-13] MEDS: MESTINON 120 MG PO (08:35)
[2024-08-13] MEDS: BENICAR 5 MG PO (08:35)
[2024-08-13] MEDS: NORVASC 5 MG PO (08:36)
[2024-08-13] MEDS: THERAGRAN 1 TABLET PO (08:36)
[2024-08-13] MEDS: FIBERCON 1250 MG PO ×2 (08:36→15:44)
[2024-08-13] MEDS: DESENEX/MITRAZOL/ZEASORB 1 APPLIC TOPICAL ×2 (08:36→20:09)
[2024-08-13] MEDS: PAXIL 30 MG PO (08:36)
[2024-08-13] MEDS: ZYLOPRIM 100 MG PO (08:36)
[2024-08-13] MEDS: PEPCID 20 MG PO (08:36)
[2024-08-13] MEDS: VITAMIN D3 (cholecalciferol) 125 MCG PO (12:37)
[2024-08-13] MEDS: MESTINON 90 MG PO ×2 (12:38→15:44)
[2024-08-13 14:44] VITALS: BP 141/53; PULSE 55
[2024-08-13 14:46] VITALS: BP 141/53; PULSE 55
[2024-08-13 15:30] VITALS: BP 138/53
--- NOTE | 2024-08-13 16:34 | CM ---
Spoke with Jeanine, admissions at [facility], she stated that PMR will see and will review therapy to determine if he is still appropriate for acute.
Plan: Case management will continue to follow and assist with discharge planning. [facility], Acute rehab [facility].
--- NOTE | 2024-08-13 16:41 | CON.MR ---
Consultation
Consultation Request
Date/Time Consultation Performed: 08/13/24 - 1630
Requesting Provider: Dr. Green
Performing Provider: Dr. Stiles
Reason for Consultation: Weakness, MG
Medical History
-
Chief Complaint: Weakness
History of Present Illness:
I had the opportunity to see Gilson Tomlin in rehabilitation consultation today. This is an 84-year-old male past medical history of AV block status post pacemaker, paroxysmal atrial fibrillation on Eliquis, dementia, GERD, hypertension,
hypercholesteremia, myasthenia gravis, BPH, osteoarthritis, obstructive sleep apnea, peripheral neuropathy, presenting after a fall. Reportedly he slid out of a chair and could not get up and couldn't help. In the ED was noted with positive
flu and admitted.
History of myasthenia and reportedly had several falls at home recently before this admission. History of neuropathy with chronic numbness and tingling in the feet - does have L foot deformity and uses an orthotic for that foot and special shoes -
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
While inpatient, weakness felt to be due to myasthenia flare, in conjunction with Influenza A and started on IVIG. Received 5/5 today. Also completed Tamiflu course.
Patient seen at bedside today and family in room with patient. He is sitting up in the bedside chair. Denies any current pain today. Chronic tingling in the feet, but no new changes. Denies any dizziness or lightheadedness when up out of bed today
or currently. No chest pain but some shortness of breath earlier. No GI complaints.
Past Medical History
Past Surgical History: Other (AV block status post pacemaker, paroxysmal atrial fibrillation on Eliquis, dementia, GERD, hypertension, hypercholesteremia, myasthenia gravis, BPH, osteoarthritis, obstructive sleep apnea, peripheral neuropathy)
Social History
Functional Level Premorbidity:
Independent for all activities. Used walker at home - lives with in in-law suite with family.
Current Funct Level: Ambulation, Transfer, UE/LE Dressing:
Min A bed mobility, Mod A x 2 sit-stand transfer and only a couple of steps with some posterior instability during PT session 08/13
Personal:
Living: With Spouse
Number of Floors: 1 (1st floor set up in in-law suite)
# Steps to Enter: 1 small step
Potential First Floor Set Up: Yes
Allergies / Home Medications
Allergy/AdvReac Type Severity Reaction Status Date / Time
No Known Drug Allergies Allergy Unknown Verified 08/07/24 12:07
�Medication �Instructions �Recorded �Confirmed �Last Taken �Type
allopurinol 300 mg tablet 300 mg PO DAILY Gout 01/09/20 08/07/24 08/07/24 History
calcium polycarbophil 625 mg 1,250 mg PO BID@0800,1600 01/09/20 08/07/24 08/07/24 History
tablet (Fiber-Tabs) Constipation
finasteride 5 mg tablet 5 mg PO QPM Urinary issue 01/09/20 08/07/24 08/06/24 History
pyridostigmine bromide 60 mg tablet 60 mg PO DAILY@2000 Myasthenia 01/09/20 08/07/24 08/06/24 History
gravis
pyridostigmine bromide 60 mg tablet 90 mg PO BID@1200,1600 Myasthenia 01/09/20 08/07/24 08/07/24 History
gravis
tamsulosin 0.4 mg capsule 0.8 mg PO QPM Urinary issue 01/09/20 08/07/24 08/06/24 History
apixaban 5 mg tablet (Eliquis) 5 mg PO BID 05/02/24 08/07/24 08/07/24 History
atorvastatin 40 mg tablet 40 mg PO HS 05/02/24 08/07/24 08/06/24 History
memantine 10 mg tablet 10 mg PO BID 05/02/24 08/07/24 08/07/24 History
amlodipine 5 mg tablet 5 mg PO DAILY 08/07/24 08/07/24 05/08/24 History
cholecalciferol (vitamin D3) 125 125 mcg PO NOON 08/07/24 08/07/24 08/07/24 History
mcg (5,000 unit) tablet
famotidine 20 mg tablet 20 mg PO DAILY 08/07/24 08/07/24 08/07/24 History
loperamide 2 mg capsule 2 mg PO Q4HPRN PRN loose stool 08/07/24 08/07/24 Unknown History
bhwvgxhmoymq-omvzraam-azonok tablet 1 tab PO DAILY 08/07/24 08/07/24 08/07/24 History
olmesartan 5 mg tablet 5 mg PO DAILY 08/07/24 08/07/24 08/07/24 History
paroxetine HCl 30 mg tablet 30 mg PO DAILY 08/07/24 08/07/24 08/07/24 History
povidone (PF) 0.5 % eye drops 1 drp ophthalmic (eye) BID 08/07/24 08/07/24 08/07/24 History
(iVizia (PF))
pyridostigmine bromide 60 mg tablet 120 mg PO DAILY 08/07/24 08/07/24 08/07/24 History
Review Of Systems
-
Unable to obtain full review of systems at this time due to: Dementia
History Source: Patient
All other systems: Negative unless noted
Constitutional: Reports Fatigue
Eye: Reports No Symptoms
EENT: Reports No Symptoms
Respiratory: Reports Trouble Breathing
Cardiac: Reports No Symptoms
Abdomen/GI: Reports No Symptoms
: Reports No Symptoms
Musculoskeletal: Reports Edema
Integumentary: Reports No Symptoms
Neurological: Reports Weakness and Numbness
Psych: Reports No Symptoms
Endocrine: Reports No Symptoms
Hematologic/Lymphatic: Reports No Symptoms
Immunology: Reports No Symptoms
Physical Exam
Active Medications
Generic Name Dose Route Start Last Admin
Trade Name Freq PRN Reason Stop Dose Admin
Acetaminophen 325 mg 08/08/24 17:00 08/12/24 17:55
Acetaminophen 325 Mg Tablet PO 08/13/24 16:59 325 mg
DAILYPRN PRN Administration
IVIG pre medicate
Allopurinol 100 mg 08/12/24 08:00 08/13/24 08:36
Allopurinol 100 Mg Tablet PO 09/09/24 07:59 100 mg
DAILY BRYN Administration
Amlodipine Besylate 5 mg 08/08/24 08:00 08/13/24 08:36
Amlodipine 5 Mg Tablet PO 09/05/24 07:59 5 mg
DAILY BRYN Administration
Apixaban 2.5 mg 08/07/24 20:15 08/13/24 08:35
Apixaban (Eliquis) 2.5 Mg Tablet PO 09/04/24 20:14 2.5 mg
BID BRYN Administration
Atorvastatin Calcium 40 mg 08/07/24 22:00 08/12/24 21:19
Atorvastatin (Lipitor) 40 Mg Tablet PO 09/04/24 21:59 40 mg
HS BRYN Administration
Calcium Polycarbophil 1,250 mg 08/07/24 18:26 08/13/24 15:44
Calcium Polycarbophil 625 Mg Tablet PO 09/04/24 18:25 1,250 mg
BID@0800,1600 BRYN Administration
Cholecalciferol 125 mcg 08/08/24 12:00 08/13/24 12:37
Cholecalciferol (Vitamin D3) 125 Mcg Tablet (5,000 Units) PO 09/05/24 11:59 125 mcg
NOON BRYN Administration
Diphenhydramine HCl 25 mg 08/08/24 17:00 08/12/24 17:55
Diphenhydramine 25 Mg Capsule PO 08/13/24 16:59 25 mg
DAILYPRN PRN Administration
IVIG pre medicate
Famotidine 20 mg 08/08/24 08:00 08/13/24 08:36
Famotidine 20 Mg Tablet PO 09/05/24 07:59 20 mg
DAILY BRYN Administration
Finasteride 5 mg 08/07/24 18:26 08/12/24 17:28
Finasteride 5 Mg Tablet PO 09/04/24 18:25 5 mg
QPM BRYN Administration
Hydralazine HCl 10 mg 08/12/24 09:18
Hydralazine 20 Mg/Ml Vial IV 09/09/24 09:17
Q6HPRN PRN
SBP > 170
Loperamide HCl 2 mg 08/07/24 18:26
Loperamide 2 Mg Capsule PO 09/04/24 18:25
Q4HPRN PRN
loose stool
Memantine 10 mg 08/07/24 20:00 08/13/24 08:35
Memantine 10 Mg Tablet PO 09/04/24 19:59 10 mg
BID BRYN Administration
Miconazole Nitrate 0 applic 08/10/24 09:00 08/13/24 08:36
Miconazole Powder Bottle TOPICAL 09/07/24 08:59 1 applic
BID BRYN Administration
Multivitamins Therapeutic 1 tablet 08/08/24 08:00 08/13/24 08:36
Multivitamin Tablet PO 09/05/24 07:59 1 tablet
DAILY BRYN Administration
Olmesartan 5 mg 08/08/24 08:00 08/13/24 08:35
Olmesartan 20 Mg Tablet PO 09/05/24 07:59 5 mg
DAILY BRYN Administration
Paroxetine HCl 30 mg 08/08/24 08:00 08/13/24 08:36
Paroxetine 30 Mg Tablet PO 09/05/24 07:59 30 mg
DAILY BRYN Administration
Pyridostigmine Stafford 120 mg 08/08/24 08:00 08/13/24 08:35
Pyridostigmine 60 Mg Tablet PO 09/05/24 07:59 120 mg
DAILY BRYN Administration
Pyridostigmine Stafford 90 mg 08/07/24 18:26 08/13/24 15:44
Pyridostigmine 60 Mg Tablet PO 09/04/24 18:25 90 mg
BID@1200,1600 BRYN Administration
Pyridostigmine Stafford 60 mg 08/07/24 20:00 08/12/24 21:19
Pyridostigmine 60 Mg Tablet PO 09/04/24 19:59 60 mg
DAILY@1999 BRYN Administration
Sodium Chloride 0 flush 08/07/24 19:00
Sodium Chloride 0.9% (Flush) Syringe IV 09/04/24 18:59
PER PROTOCOL BRYN
Tamsulosin HCl 0.8 mg 08/07/24 18:26 08/12/24 17:28
Tamsulosin 0.4 Mg Capsule PO 09/04/24 18:25 0.8 mg
QPM BRYN Administration
Vital Signs
Temp Pulse Resp BP Pulse Ox
98.1 F 63 20 138/53 97
08/13/24 15:30 08/13/24 15:30 08/13/24 15:30 08/13/24 15:30 08/13/24 15:30
Height 6 ft
Actual Weight 121.1 kg
Body Mass Index (BMI) 36.2
Physical Exam
Physical Exam:
General Appearance/Observation: Well-developed, well-nourished individual in no apparent distress. Sitting up in bedside chair.
Pain/Comfort Assessment: Denies
Mood/Affect: Appropriate
Eyes: Conjunctiva/Lids: normal Pupils: pupils equal round and reactive to light and Accommodation. Has good tracking, no nystagmus, good visual acuity.
Ears/Nose/Throat: oral mucosa moist, throat clear. Lips/Teeth/Gums: normal
Neck: limited ROM but no pain
Cardiovascular: Heart: regular, no murmur
Pulses: dorsalis pedis 2+ bilaterally
Respiratory: Respiratory Effort/Chest Expansion: normal Auscultation: Clear to auscultation bilaterally
Gastrointestinal: abdomen not tender, no distension, normal abdominal bowel sounds
Extremities: Edema: 1+ bilateral LE edema distally - brawny edema and some chronic venous stasis changes. No tenderness, no warmth or evidence of cellulitis. Cyanosis: None Trophic changes: None
Neurology Exam:
Orientation: Awake and alert, needed cues for date
Memory: some limited memory recall - was giving him some answers.
Higher cortical function
Speech: Intact
Repetition: Intact
Comprehension: Intact
Two step command: Intact
Naming: Intact
Cranial Nerves: - no deficits or any notable asymmetry.
Sensory:
Light touch: Absent sensation in bilateral feet to above the ankles. No asymmetry in the thighs, denies any sensory deficits in the hands or digits.
Reflexes:
Achilles: absent bilaterally
Clonus: None
Vaishali: Negative bilaterally
Cerebellar: Dysmetria/Ataxia: None
Musculoskeletal:
Motor: (Manual muscle scale 0-5)
Muscle SA EF WE EE FF FA HF KE DF EHL PF
Right 5 5 5 5 5 4 4+ 5 4+ 4 5
Left 5 5 5 5 5 4 4 5 4+ 4 5
Tone: Normal in all extremities
Range of Motion: Passively within normal limits in all extremities
-Some limited ROM in the left hip.
-Left foot deformity, collapsed arch. no tenderness.
Lab Results
08/13/24 06:59
08/13/24 06:59
WBC 4.1 10^3/uL (4.8-10.8) L 08/13/24 06:59
Hgb 9.5 g/dL (13.0-18.0) L 08/13/24 06:59
Hct 30.2 % (39.0-52.0) L 08/13/24 06:59
MCV 98.4 fL (80.0-94.0) H 08/13/24 06:59
Plt Count 146 10^3/uL (130-400) 08/13/24 06:59
Sodium 138 mmol/L (135-145) 08/13/24 06:59
Potassium 4.5 mmol/L (3.5-5.1) 08/13/24 06:59
Chloride 113 mmol/L (98-107) H 08/13/24 06:59
Carbon Dioxide 23 mmol/L (22-30) 08/13/24 06:59
BUN 53 mg/dl (9-20) H 08/13/24 06:59
Creatinine 1.6 mg/dL (0.7-1.3) H 08/13/24 06:59
eGFR 42.49 08/13/24 06:59
Glucose 102 mg/dl (70-99) H 08/13/24 06:59
Calcium 8.3 mg/dl (8.4-10.2) L 08/13/24 06:59
Total Bilirubin 0.7 mg/dl (0.2-1.3) 08/08/24 08:08
AST 27 U/L (17-59) 08/08/24 08:08
ALT 16 U/L (0-50) 08/08/24 08:08
Alkaline Phosphatase 74 U/L (38-126) 08/08/24 08:08
Total Protein 5.2 g/dl (6.3-8.2) L 08/08/24 08:08
Albumin 2.7 g/dl (3.5-5.0) L 08/08/24 08:08
Diagnostic Results
As per HPI.
Comorbidities / Impairment Group
Comorbidities:
Neuropathy, Deconditioning, heart failure, A-fib, CKD.
Impairment Group:
Myasthenia gravis/neurological
Assessment / Plan
Plan
Assessment:
84 year old male with gait dysfunction, weakness due to Myasthenia Gravis flare due to concomitant influenza A infection.
PM&R PT/OT to increase independence with ADLs, improve balance, coordination, endurance, strength, mobility, community reintegration, decreased burden of care on others and family education.
Myasthenia: Received 5 out of 5 IVIG treatments today. Continue home mestinon dosing - pyridostigmine 90 mg p.o. twice a day and 60 mg p.o. daily
-Rehab would be necessary to get back to previous level of baseline, increase strength, balance, minimize fall risk.
Peripheral polyneuropathy: Patient with a stocking polyneuropathy distribution pattern. Including some left foot deformity that looks suspicious for possible charcot joint. Is chronic and doesn't appear to be anything new. Continue to monitor, and
can follow up with neurology outpatient after discharge.
- Patient at high risk of falling with subsequent significant neuropathy.
CKD: monitor labs
Gout: Allopurinol
HTN: continue olmesartan, amlodipine, monitor closely
HLD: Statin
Atrial fibrillation: Continue Eliquis and not on any rate control medications.
CHF: Seems stable
Influenza A: finished course of tamiflu.
Psych: Psychology consult. Monitor mood, adjust medications as needed.
- Memantine for Dementia
Skin: monitor for pressure sores/rashes/lesions.
Pain: acetaminophen as needed.
Bowel: Colace and Senna, PRN bisacodyl.
Bladder: Time void, PVRs, PRN straight cath.
- Finasteride, flomax
GI Prophylaxis: famotidine
DVT Prophylaxis: on Eliquis for a-fib
Pulmonary: Incentive spirometry
Safety: Continue to reinforce assistance with all transfers.
Code Status: Full code
Dispo (date/plan/equipment needs): Eventual Home with family care. Social history reviewed.
Functional and Medical Goals: Modified Independent with ADL�s, ambulation, transfers
Summary
-
Things that must be addressed in Hospital prior to discharge:
1. Please continue bedside PT/OT.
Discharge Destination: Acute rehab once medically stable for transfer
Summary of recommendations:
- Discharge Destination: Acute rehab
- would benefit from multispecialty rehabilitation care with PT, OT and could tolerate 3hr/day of therapy to increase strength, mobility, gait, balance, to reduce fall risk and increase safety and independence at home to goal of Mod I with walker.
Will continue to follow patient.
Thank you for allowing me to care for your patient. Please contact me with any questions or concerns.
Data Reviewed
-
Labs: Labs Reviewed by me
Comments
-
This note was dictated using a voice recognition system. Please excuse any typographical errors from residential real estate appraiser. If you believe there are any discrepancies, please notify our office.
[2024-08-13] MEDS: PROSCAR 5 MG PO (17:14)
[2024-08-13] MEDS: FLOMAX 0.8 MG PO (17:14)
[2024-08-13] MEDS: LIPITOR 40 MG PO (20:10)
[2024-08-13] MEDS: MESTINON 60 MG PO (20:10)
[2024-08-13 23:06] VITALS: BP 110/77
[2024-08-14 07:43] VITALS: BP 122/93
--- NOTE | 2024-08-14 08:04 | W.PN.HOSP.TC ---
Today's Communication/Plan
-
discharge
Assessment / Plan
Assessment / Plan
Physical exam:
General: No acute distress appears comfortable at this time
HEENT: Normocephalic, Atraumatic and Moist Mucous Membranes, Hard of Hearing
Respiratory: Clear to Auscultation; Negative Wheezes, Rales or Rhonchi
Cardiac: Regular Rhythm and S1/S2
GI: Soft, Nontender and Nondistended
Musculoskeletal: No Clubbing, No Cyanosis and No Edema
Neuro: Awake Alert Conversant
Psych: Calm, limited judgment and insight.
A/P: 84M pAfib Dementia MG CKD3 HFmrEF HTN Gout here with for Myasthenia Gravis exacerbation by Flu infection.
Myasthenia gravis exacerbation:
Exacerbation due to influenza
completed 5 days IV immunoglobulin
Continue pyridostigmine 90 mg p.o. twice a day and 60 mg p.o. daily
Appreciated neurology consult and follow-up
PT OT eval appreciated
PMR eval appreciated appropriate for Acute Rehab
Acute hypoxic respiratory failure:
Resolved
On room air
Influenza A:
Completed 5 days Tamiflu renally dosed
Pancytopenia:
likely viral related, improving with resolution infection
repeat CBC in 1 week recommended
Chronic kidney disease stage III:
Avoid nephrotoxic
repeat BMP in 1 week recommended
Paroxysmal atrial fibrillation:
Not on rate control agent
Status post pacemaker in the past
Continue anticoagulation, Eliquis 2.5 mg twice a day
Chronic HFmrEF:
Appears euvolemic
Continue to monitor ins and outs and daily weight
Hypertension:
Continue olmesartan 5 mg p.o. day
Continue amlodipine 5 mg p.o. daily
Add IV hydralazine as needed
Hyperlipidemia:
Continue atorvastatin 40 mg p.o. nightly
Dementia:
Continue memantine 10 mg p.o. twice a day
BPH:
Continue Flomax 0.8 mg p.o. nightly
Depression:
Continue paroxetine 30 mg p.o. daily
Gout:
Continue allopurinol but decrease to renally dose
GERD:
Continue Pepcid
DVT prophylaxis:
Eliquis
CODE STATUS
Full code
Medically stable for discharge to Acute rehab with outpatient follow up recommendations.
Discussed with patient and patient's Rebeka
Total Time Preparing Discharge ___40____ minutes including examination of the patient, summary of the hospital stay, instructions for continuing care to all relevant caregivers; and preparation of discharge records, prescriptions, and referral
forms if necessary.
Anticipated Discharge: Today
Subjective/Interval History
-
Date of Service: August 14, 2024
No acute distress sitting up comfortably in bed. Denies new acute issues. Overall reports feeling well. Rebeka present during evaluation.
Objective Data
-
Vital Signs:
Vital Signs
Temp Pulse Resp BP Pulse Ox
97.8 F 61 16 122/93 98
08/14/24 07:43 08/14/24 07:43 08/14/24 07:43 08/14/24 07:43 08/14/24 07:43
I&O
08/13/24 08/14/24 08/15/24
06:59 06:59 06:59
Intake Total 2760 / 2760 720 / 720
Output Total 200 / 200
Balance 2760 / 2760 520 / 520
[2024-08-14] MEDS: FIBERCON 1250 MG PO (09:12)
[2024-08-14] MEDS: MESTINON 120 MG PO (09:13)
[2024-08-14] MEDS: NAMENDA 10 MG PO (09:13)
[2024-08-14] MEDS: PEPCID 20 MG PO (09:13)
[2024-08-14] MEDS: BENICAR 5 MG PO (09:14)
[2024-08-14] MEDS: ZYLOPRIM 100 MG PO (09:15)
[2024-08-14] MEDS: NORVASC 5 MG PO (09:16)
[2024-08-14] MEDS: PAXIL 30 MG PO (09:16)
[2024-08-14] MEDS: DESENEX/MITRAZOL/ZEASORB 1 APPLIC TOPICAL (09:21)
[2024-08-14] MEDS: THERAGRAN 1 TABLET PO (09:21)
[2024-08-14] MEDS: ELIQUIS 2.5 MG PO (09:21)
[2024-08-14] MEDS: MESTINON 90 MG PO (11:43)
[2024-08-14] MEDS: VITAMIN D3 (cholecalciferol) 125 MCG PO (11:44)
--- NOTE | 2024-08-14 12:47 | W.DCSUMMARY ---
Discharge Summary
Discharge Data
Date of Admission: 08/08/24
Date of Discharge: 08/14/24
-
Pending Results: No
Discharge Plan
-
Patient Disposition: Acute Rehab Facility
Discharge Diagnosis/Procedures: Acute Hypoxic Respiratory Failure due to Myasthenia Gravis Exacerbation secondary to Flu
Pancytopenia likely due to Flu
Chronic Kidney Disease Stage III
Hypertension
Paroxysmal Atrial Fibrillation
Chronic Heart Failure mid-range Ejection Fraction
Dementia
Gout
Hyperlipidemia
GERD
BPH
Condition: Fair
Diet: Regular
Activity: With assistance and As tolerated
Driving Restrictions: Not until seen by your Dr
Bathing Restrictions: None
Blood Work: Repeat CBC and BMP in 1 week
Other Services: PT and OT
Activity Restrictions/Additional Instructions:
Please follow up with primary care provider in 1 week from discharge. Follow up with Neurology in 2 weeks of discharge.
Allopurinol, for gout, has been reduced to 100 mg daily, renal dosing for chronic kidney disease stage III.
Eliquis, for stroke risk reduction atrial fibrillation, has been reduced to 2.5 mg twice a day, renal dosing due to age and kidney function.
Please take medications as prescribed/recommended and follow up with primary care provider and/or other healthcare provider involved in your care for refills and/or further adjustment to your medication regimen as necessary.
Referrals:
Last Rice MD [Family Provider] - in one week
Pedrito Watt MD [Active] - in two weeks
Prescriptions:
New
allopurinol 100 mg Tablet
100 mg PO DAILY Qty: 30 0RF
Eliquis 2.5 mg Tablet
2.5 mg PO BID Qty: 60 0RF
Continued
calcium polycarbophil [Fiber-Tabs] 625 MG tablet
1,250 mg PO BID@0800,1600
finasteride 5 MG tablet
5 mg PO QPM
tamsulosin 0.4 MG capsule
0.8 mg PO QPM
pyridostigmine bromide 60 MG tablet
90 mg PO BID@1200,1600
pyridostigmine bromide 60 MG tablet
60 mg PO DAILY@2000
atorvastatin 40 mg Tablet
40 mg PO HS
memantine 10 mg Tablet
10 mg PO BID
amlodipine 5 mg Tablet
5 mg PO DAILY
Rx Instructions:
currently on HOLD
famotidine 20 mg Tablet
20 mg PO DAILY
paroxetine HCl 30 mg Tablet
30 mg PO DAILY
pyridostigmine bromide 60 mg Tablet
120 mg PO DAILY
olmesartan 5 mg Tablet
5 mg PO DAILY
raasvvwtzraw-slqijjve-riyrqe Tablet
1 tab PO DAILY
iVizia (PF) 0.5 % Drops
1 drp ophthalmic (eye) BID
loperamide 2 mg Capsule
2 mg PO Q4HPRN PRN (Reason: loose stool)
cholecalciferol (vitamin D3) 125 mcg (5,000 unit) Tablet
125 mcg PO NOON
Discontinued
allopurinol 300 MG tablet
300 mg PO DAILY
Eliquis 5 mg Tablet
5 mg PO BID
Discharge Orders:
Discharge Patient (As Directed); Ordered 08/14/24
Ordered By: Ángel Mathews
Discharge Date and Time
Print Language: RWANDAN
--- NOTE | 2024-08-14 12:58 | CM ---
Spoke with attending who stated that patient has been medically cleared for discharge. Placed a call to Jeanine in admissions at [facility] who confirmed that patient has been accepted. Attending updated as well as patient's and RN. #For report
[phone] .
IMM reviewed and signed.
Plan: Case management will continue to follow and assist with discharge planning. Deleon.
[2024-08-14 14:57] VITALS: BP 159/66
== END 2024-08-14 15:09 | DRG 56 ==
LOC: 3 WEST ACU 16:11
PROVIDERS: Hospitalist; ADMITTING PHYSICIAN Hospitalist; ATTENDING PHYSICIAN Internal Medicine; CONSULT PHYSICIAN Psychiatry & Neurology Clinical Neurophysiology; EMERGENCY PHYSICIAN Emergency Medicine; FAMILY PHYSICIAN Family Medicine; OTHER PHYSICIAN Physical Medicine & Rehabilitation
DX: G70.01 Myasthenia gravis with (acute) exacerbation (principal); J96.01 Acute respiratory failure with hypoxia; D61.818 Other pancytopenia; I13.0 Hypertensive heart and chronic kidney disease with heart failure and stage 1 through stage 4 chronic kidney disease, or unspecified chronic kidney disease; I50.22 Chronic systolic (congestive) heart failure; F03.93 Unspecified dementia, unspecified severity, with mood disturbance; J10.1 Influenza due to other identified influenza virus with other respiratory manifestations; N18.30 Chronic kidney disease, stage 3 unspecified; I48.0 Paroxysmal atrial fibrillation; M10.9 Gout, unspecified; K21.9 Gastro-esophageal reflux disease without esophagitis; N40.0 Benign prostatic hyperplasia without lower urinary tract symptoms; Z95.0 Presence of cardiac pacemaker; W19.XXXA Unspecified fall, initial encounter; E78.00 Pure hypercholesterolemia, unspecified; I44.30 Unspecified atrioventricular block; M19.90 Unspecified osteoarthritis, unspecified site; G47.33 Obstructive sleep apnea (adult) (pediatric); G62.9 Polyneuropathy, unspecified; K52.9 Noninfective gastroenteritis and colitis, unspecified; Z96.653 Presence of artificial knee joint, bilateral; Z79.01 Long term (current) use of anticoagulants; K59.00 Constipation, unspecified; M21.962 Unspecified acquired deformity of left lower leg; Z79.899 Other long term (current) drug therapy; F32.A Depression, unspecified; E66.9 Obesity, unspecified; Z91.81 History of falling; Z11.52 Encounter for screening for COVID-19
CPT/HCPCS: 36600; 70450; 71045; 72125; 80048; 80053; 82805; 83605; 85025; 85027; 87502; 87811; 97163; 97167; 97530; 97535; 99285; J1569

== ENCOUNTER → 2024-09-15 10:20 | Outpatient (REF) | payer MEDICARE, OTHER, SELFPAY ==
[2024-09-15 11:00] LABS: % Basophils 0.6 % (0-2); % Eosinophils 2.2 % (0-6); % Immature Granulocytes 0.4 % (0-0.5); % Monocytes 8.2 % (1.7-9.3); % Neutrophils 55.6 % (42.2-75.2); Absolute Eosinophils 0.1 10^3/uL (0-0.7); Absolute Lymphocytes 1.8 10^3/uL (1.2-3.4); Absolute Monocytes 0.4 10^3/uL (0.1-0.6); Hematocrit 33.3 % (39.0-52.0); Hemoglobin 10.7 g/dL (13.0-18.0); Mean Corp Hgb Conc. 32.1 g/dL (33.0-37.0); Mean Corpuscular Hgb 31.7 pg (27.0-31.0); Mean Corpuscular Volume 98.5 fL (80.0-94.0); Mean Platelet Volume 10.6 fL (7.4-10.4); Nucleated Red Blood Cells % 0 % (-); Platelet Count 157 10^3/uL (130-400); Red Blood Cell Count 3.38 10^6/uL (4.70-6.10); Red Cell Dist. Width 14.8 % (11.5-14.5); White Blood Cell Count 5.4 10^3/uL (4.8-10.8)
[2024-09-15 11:13] LABS: ALT (SGPT) 25 U/L (0-50); AST (SGOT) 30 U/L (17-59); Albumin 3.4 g/dl (3.5-5.0); Alkaline Phosphatase 88 U/L (38-126); Blood Urea Nitrogen 45 mg/dl (9-20); Calcium 9.2 mg/dl (8.4-10.2); Carbon Dioxide 33 mmol/L (22-30); Chloride 104 mmol/L (98-107); Glucose 111 mg/dl (70-99); Potassium 4.2 mmol/L (3.5-5.1); Sodium 136 mmol/L (135-145); Total Bilirubin 0.6 mg/dl (0.2-1.3); Total Protein 6.3 g/dl (6.3-8.2); eGFR 34.57
[2024-09-17 12:22] LABS: Iron 63 ug/dl (49-181)
[2024-09-17 12:31] LABS: Percent Saturation 28 % (20-50); Total Iron Binding Capacity 221 ug/dl (261-462)
[2024-09-17 16:48] LABS: Folate 17.5 ng/ml (2.76-20); Vitamin B12 823 pg/ml (239-931)
== END ==
LOC: REG 10:20
PROVIDERS: ATTENDING PHYSICIAN Nurse Practitioner Family; FAMILY PHYSICIAN Family Medicine
DX: R74.8 Abnormal levels of other serum enzymes (principal); N28.9 Disorder of kidney and ureter, unspecified
CPT/HCPCS: 36415; 80053; 82607; 82746; 83540; 83550; 85025

== ENCOUNTER → 2024-09-24 11:58 | Outpatient (REF) | payer MEDICARE, OTHER, SELFPAY | LOC: REG 11:58 | PROVIDERS: ATTENDING PHYSICIAN Psychiatry & Neurology Neurology; FAMILY PHYSICIAN Family Medicine | DX: R41.89 Other symptoms and signs involving cognitive functions and awareness (principal) | CPT/HCPCS: 36415 ==

== ENCOUNTER → 2024-11-06 13:14 | Outpatient (REF) | payer MEDICARE, OTHER, SELFPAY ==
[2024-11-06 15:26] LABS: Erythrocyte Sed Rate 36 mm/hour (0-20)
[2024-11-08 12:12] LABS: Lyme Antibody Screen, EIA Negative (Negative)
[2024-11-09 06:13] LABS: Arsenic, Blood <10.0 ug/L (<=12.0); Lead - Venous 2.2 ug/dL (<=4.9); Mercury, Blood <2.5 ug/L (<=10.0)
== END ==
LOC: REG 13:14
PROVIDERS: ATTENDING PHYSICIAN Psychiatry & Neurology Neurology; FAMILY PHYSICIAN Family Medicine
DX: G60.9 Hereditary and idiopathic neuropathy, unspecified (principal)
CPT/HCPCS: 36415; 82175; 82595; 83516; 83655; 83825; 84155; 84165; 85652; 86038; 86140; 86618; 86780

== ENCOUNTER 2025-04-23 16:06 | Emergency (ER) | payer MEDICARE, OTHER, SELFPAY ==
[2025-04-23 16:12] VITALS: BP 133/83
[2025-04-23 16:44] LABS: Hematocrit 38.1 % (39.0-52.0); Hemoglobin 12.3 g/dL (13.0-18.0); Mean Corp Hgb Conc. 32.3 g/dL (33.0-37.0); Mean Corpuscular Volume 96.0 fL (80.0-94.0); Nucleated Red Blood Cells % 0 % (-); Platelet Count 189 10^3/uL (130-400); Red Cell Dist. Width 14.5 % (11.5-14.5)
[2025-04-23 17:07] LABS: ALT (SGPT) 17 U/L (0-50); AST (SGOT) 30 U/L (17-59); Albumin 3.5 g/dl (3.5-5.0); Alkaline Phosphatase 78 U/L (38-126); Blood Urea Nitrogen 43 mg/dl (9-20); Calcium 9.1 mg/dl (8.4-10.2); Carbon Dioxide 30 mmol/L (22-30); Chloride 106 mmol/L (98-107); Glucose 132 mg/dl (70-99); Potassium 3.9 mmol/L (3.5-5.1); Sodium 135 mmol/L (135-145); Total Protein 6.4 g/dl (6.3-8.2); eGFR 42.22
[2025-04-23 19:16] VITALS: BP 142/73
[2025-04-23 19:22] VITALS: BMI 36.3
[2025-04-23 20:33] LABS: Urine Character Clear (Clear)
[2025-04-23 20:48] LABS: Urine Red Blood Cell 0-2 /HPF (0-2)
--- NOTE | 2025-04-23 22:19 | ED.MUSCINJ ---
HPI-Injury
General
Chief Complaint: Fall
Source: patient, spouse and family
Exam Limitations: none
Time Seen by Provider: 04/23/25 18:18
Nursing documentation reviewed up to this point in time: agreed with
History of Present Illness-Injury
Is this injury a work related problem?: No
Is pt an associate of [facility]?: No
Initial Injury comments:
Patient to the emergency department after unwitnessed fall at home. According to spouse she heard him fall and he called for her right away. She found him sitting on the floor with his back up against the commode, legs on the bed. She was unable
to get him off of the floor so they called 911 and he was assisted back to bed. Incident occurred earlier today. Since then he has been complaining of knee pain ambulating states he was unable to bear weight at home. Brought to emergency room by
son for evaluation. patient denies hitting his head.
Past History
Past History
ED Past Medical History: GERD, HTN, Hypercholesterolemia, Other (Masthenia Gravis) and Other ( Sleep apnea wears C-pap, Gout, peripheral neuropathy)
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
Social History
Tobacco: Non-smoker
Alcohol: None
Personal:
Living: with family
Review of Systems
Review of Systems
Allergies reviewed?: Yes
All Other Systems: ROS reviewed and negative except as documented in HPI and ROS
Constitutional: Reports no symptoms
EENT: Reports no symptoms
Respiratory: Reports no symptoms
Cardiac: Reports no symptoms
ABD/GI: Reports no symptoms
: Reports no symptoms
Musculoskeletal: Reports joint pain (Right knee pain)
Skin: Reports no symptoms
Neurological: Reports no symptoms
Psychiatric: Reports no symptoms
Musculoskeletal Injury Exam
Musculoskeletal Injury Exam
Right Knee:
Pain with Movement?: Mild
Tender to palpation?: Mild
Soft tissue swelling?: None
External deformity and angulation?: None
Joint effusion?: None
Contusion?: Moderate
Hematoma-local bleeding into tissue?: None
Strain- Sprain- Tear (Connective tissue injury)?: Moderate
Crepitus with movement?: No
Joint instability?: No
Malalignment/deformity?: No
Range of motion: Full
Distal skin color and temperature: normal-warm & good color
Capillary Refill: normal
Normal distal neurovascular exam?: Yes
Phy Exam
General Physical Exam
General Presentation: well appearing and no apparent distress
General age: appears stated age
General Skin: warm and dry
General Habitus: normal
General Mental: alert
Cardiovascular Exam
Cardiovascular Exam: regular rate/rhythm
Pulmonary Exam
Pulmonary Exam: lungs clear and no respiratory distress
Gastrointestinal Exam
Gastrointestinal Exam: normal bowel sounds, non tender and soft
Neurological Exam
Neurological Exam: alert, oriented x3, CN II-XII intact, no motor deficits, no sensory deficits, speech normal and normal gait
[place] Coma Scale
Eye Opening: Spontaneous
Verbal Response: Oriented
Motor Response: Obeys Commands
GCS Total Score: 15
Musculoskeletal Exam
Musculoskeletal Exam: full ROM and neuro vasc intact
Skin Exam
Skin Exam: normal color, warm/dry and no rash
Psychiatric Exam
Psychiatric Exam: normal mood/affect
Injury Course
Orders/Labs/Results
Orders:
Orders
04/23/25 16:20
Knee, Right 4 or More Views [CR Knee- Right 4 Or More View*] Urgent
Comment:
Reason For Exam: pain after a fall
04/23/25 16:33
Complete Blood Count/With Diff Urgent
Comprehensive Metabolic Panel Urgent
04/23/25 20:25
Urinalysis Reflex To Culture Urgent
Date Specimen was Collected: 04/23/25
Time Specimen was Collected: 16:20
Urine Microscopic Reflex Cult Urgent
04/23/25 21:08
Knee Immobilizer Right-Treatme ONCE
Abnormal Lab Results
04/23/25 04/23/25
16:33 20:25
RBC 3.97 L 10^6/uL
(4.70-6.10)
Hgb 12.3 L g/dL
(13.0-18.0)
Hct 38.1 L %
(39.0-52.0)
MCV 96.0 H fL
(80.0-94.0)
MCHC 32.3 L g/dL
(33.0-37.0)
MPV 10.5 H fL
(7.4-10.4)
Absolute Lymphs (auto) 1.1 L 10^3/uL
(1.2-3.4)
Neutrophils % 76.3 H %
(42.2-75.2)
Lymphocytes % 16.0 L %
(20.5-51.1)
BUN 43 H mg/dl
(9-20)
Creatinine 1.6 H mg/dL
(0.7-1.3)
Glucose 132 H mg/dl
(70-99)
Urine Bacteria (Reflex) Few A
(Negative)
Urine Albumin (Reflex) 2+ A
(Neg - Trace)
04/23/25 16:33
04/23/25 16:33
*Radiology
Radiology exam reviewed: radiology read reviewed
*Pulse Oximetry
SaO2: 96
Oxygen Mode of Delivery: Room air
Patient hypoxic: no
*Critical Care Note
Total Time (30-74mins, 75-104mins- exclusive of procedures): Not Applicable
Update Note
Update Note:
Patient to the emergency department after unwitnessed fall at home. He complained of knee pain prior to arrival to arrival he just noted right knee pain. X-ray was completed no evidence of fracture. He was able to walk with a walker. Family
reports that his gait has been unsteady for the past few weeks. He was given prescription for home physical therapy. His will call to schedule that any anxiety. Patient's spouse and son the is at his baseline and is safe to go home. Small
brace was placed on his left knee for comfort and support. He is encouraged to follow-up with his family doctor.
ED Attending Note
-
Portions of this chart may have been created with voice recognition software.� Occasional wrong word or��sound alike� substitutions may have occurred due to the inherent limitations of voice recognition software.
Discharge Plan
Departure
Patient Disposition: Home (Routine Discharge)
Date of Disposition: 04/23/25
Time of Disposition: 21:08
Patient with high blood pressure during this ER visit?: No
Condition: Good
Covid-19: Not Applicable
Discharge Problem:
Knee sprain
Instructions: Preventing falls in adults, Knee Sprain ED, Cold therapy for pain
Prescriptions:
No Action
calcium polycarbophil [Fiber-Tabs] 625 MG tablet
1,250 mg PO BID@0800,1600
finasteride 5 MG tablet
5 mg PO QPM
tamsulosin 0.4 MG capsule
0.8 mg PO QPM
pyridostigmine bromide 60 MG tablet
90 mg PO BID@1200,1600
pyridostigmine bromide 60 MG tablet
60 mg PO DAILY@1999
atorvastatin 40 mg Tablet
40 mg PO HS
memantine 10 mg Tablet
10 mg PO BID
famotidine 20 mg Tablet
20 mg PO DAILY
paroxetine HCl 30 mg Tablet
30 mg PO DAILY
pyridostigmine bromide 60 mg Tablet
120 mg PO DAILY
xidyjomwuhom-ilfyesnx-reicsa Tablet
1 tab PO DAILY
amlodipine 5 mg Tablet
5 mg PO BID AT 0800,1700 30 Days Qty: 60 0RF
allopurinol 100 mg Tablet
100 mg PO DAILY Qty: 30 0RF
furosemide 40 mg Tablet
40 mg PO DAILY 30 Days Qty: 30 0RF
Desitin 40 % Paste
1 applic topical BID 30 Days Qty: 50 0RF
cholecalciferol (vitamin D3) 125 mcg (5,000 unit) Tablet
125 mcg PO NOON Qty: 0 0RF
Eliquis 2.5 mg Tablet
2.5 mg PO BID Qty: 60 0RF
Referrals:
Last Rice MD [Family Provider, Family Practice]
Interventions
Interventions:
*Risk Screen - Suicide Last Done: 04/23/25 19:19
*General Assessment Last Done: 04/23/25 19:18
*ED- Fall Risk Assessment Last Done: 04/23/25 19:17
*ED COVID-19 Vaccine History Last Done: 04/23/25 19:17
*ED Influenza Vaccine History Last Done: 04/23/25 19:17
*Nursing Disposition Last Done: 04/23/25 21:33
ED-Musculoskeletal Assessment Last Done: 04/23/25 19:20
ED- Neurological Assessment Last Done: 04/23/25 19:20
ED-Skin Assessment Last Done: 04/23/25 19:21
Discharge Date and Time
Discharge Date/Time: 04/23/25 21:34
Print Language: UKRAINIAN
== END 2025-04-23 21:34 | disposition home or self-care (01) ==
LOC: EMR 16:06
PROVIDERS: Emergency Medicine; EMERGENCY PHYSICIAN Student in an Organized Health Care Education/Training Program; FAMILY PHYSICIAN Family Medicine
DX: S83.91XA Sprain of unspecified site of right knee, initial encounter (principal); W19.XXXA Unspecified fall, initial encounter; Y92.003 Bedroom of unspecified non-institutional (private) residence as the place of occurrence of the external cause; R26.81 Unsteadiness on feet; I10 Essential (primary) hypertension; E78.00 Pure hypercholesterolemia, unspecified; G47.30 Sleep apnea, unspecified; G70.00 Myasthenia gravis without (acute) exacerbation; K21.9 Gastro-esophageal reflux disease without esophagitis; M10.9 Gout, unspecified; G62.9 Polyneuropathy, unspecified; Z96.653 Presence of artificial knee joint, bilateral
CPT/HCPCS: 99283; 29505; 73564; 80053; 81003; 81015; 85025

== ENCOUNTER 2025-04-29 13:16 | Emergency (ER) | payer MEDICARE, OTHER, SELFPAY ==
[2025-04-29 13:25] VITALS: BP 136/109
--- NOTE | 2025-04-29 17:42 | ED.GENMED ---
History of Present Illness
General
Chief Complaint: Fall
Time Seen by Provider: 04/29/25 17:42
History of Present Illness
History of Present Illness:
FOCUSED PAST MEDICAL HISTORY
- Dementia, high blood pressure, myasthenia gravis
REVIEW OF OLD RECORDS
- The patient was seen here last week diagnosed with a knee sprain.
- He was admitted this past July with myasthenia gravis exacerbation and flu infection
RADIOLOGY
- CT head shows no acute abnormality, rib series shows no clear sign of displaced right rib fracture, left ankle x-ray unremarkable
Note:
CHIEF COMPLAINT(S)
Fall with subsequent pain.
HISTORY OF PRESENT ILLNESS
The patient is an 85-year-old male with a medical history of Myasthenia Gravis and dementia, who presented to the emergency department following a fall. The fall occurred yesterday afternoon, and it was the second incident this week, with a previous
fall on Tuesday leading to a knee sprain. The patient lives with family and occupies an in-law suite. According to family, last night he got out of bed and fell next to it, potentially while attempting to get to a commode. Today, when he moves, he
experiences significant pain in the chest region, specifically the anterolateral right ribs, confirmed by family to be the primary area of discomfort. The patient has noticeable bruising on both knees and other areas such as the right upper and left
lower extremities. He is on Apixaban (Eliquis), an anticoagulant. Imaging including a chest and rib X-ray revealed no displaced fractures or lung injury. The patient did not take Tylenol or any other analgesics before presenting to the ER.
EXTERNAL RECORDS REVIEWED
X-ray imaging reports of the chest and ribs showing no displaced fractures or signs of lung injury were considered during this visit.
CHRONIC MEDICAL CONDITIONS SIGNIFICANTLY AFFECTING CARE
- Myasthenia Gravis
- Dementia
SOCIAL DETERMINANTS AFFECTING HEALTH
The patient lives with family members and may rely on them for assistance with daily activities.
MEDICATIONS
- Amlodipine 5 mg, taken at 8 a.m.
- Apixaban 2.5 mg, twice daily
- Pyridostigmine for myasthenia
- Various medications for memory enhancement due to dementia
REVIEW OF SYSTEMS
- General: Weakness and debilitation observed.
- Musculoskeletal: Pain primarily in the right anterior chest, bruises on the knees.
- Neurological: Impaired balance.
- Hematologic: Ecchymosis present, more prominent in certain extremities.
PHYSICAL EXAM
General: Alert, no acute distress. Appears generally weak and debilitated
Skin: Warm, dry with scattered ecchymosis, notably on the right upper extremity and left lower extremity.
Head: Normocephalic, atraumatic.
Neck: Supple, trachea midline. No midline C-spine tenderness
Eye, Ears, Nose, Mouth, and Throat: Oral mucosa moist.
Cardiovascular: Normal peripheral perfusion, No edema.
Respiratory: Tenderness on palpation of lower anterolateral right ribs, respirations are non-labored.
Gastrointestinal: Abdomen nondistended, non-tender with no peritoneal signs.
Back: Normal range of motion, Normal alignment.
Musculoskeletal: Normal ROM, normal strength although weakness noted globally.
Neurological: Alert and oriented to person, place, time, and situation, No focal neurological deficit observed.
Psychiatric: Cooperative, flat affect, appropriate mood & affect.
PROBLEM LIST
Acute:
- Fall with subsequent rib pain
- Ecchymosis due to anticoagulant therapy
Chronic:
- Myasthenia Gravis
- Dementia
PLAN
- Administer 1000 mg of Tylenol now. The patient can be given Tylenol every 6 hours as needed for pain, with a focus on dosing before bed and upon waking.
- No further imaging at this time as internal bleeding is unlikely due to the absence of significant abdominal pain and normal vital signs.
- Educate the family about warning signs of more serious internal injuries and the importance of supervision to prevent additional falls.
DIFFERENTIAL DIAGNOSIS
The Differential Diagnosis includes, in no particular order and is not limited to:
1. Rib contusion or fracture
2. Soft tissue injury from the fall
3. Internal bleeding due to anticoagulant use
4. Muscle strain
5. Exacerbation of Myasthenia Gravis
6. Hematoma formation
7. Neurological impact due to fall
8. Chronic pain exacerbation due to prior arthritis or osteoporosis
9. Depression-related to dementia
10. Medication side effects affecting coordination or balance
Disposition:
SUMMARY OF ENCOUNTER
The patient, an 85-year-old male with a history of Myasthenia Gravis and dementia, was seen in the emergency department following a fall. The fall occurred when the patient attempted to get out of bed and potentially reach a commode. Upon
evaluation, the primary area of pain was the anterolateral right ribs, without any displaced fractures or lung injury noted on the chest X-ray. Consideration was given to additional imaging, but it was deemed unnecessary due to the absence of
abdominal tenderness and significant rest pain, as the discomfort was mainly associated with positional changes. Due to the patients age and use of apixaban, acetaminophen was recommended as the optimal pain management option. The plan included
monitoring for worsening symptoms, and the patient was advised to return if symptoms escalated.
PLAN
Administer acetaminophen for pain management as it is safer considering the patients age and anticoagulation therapy. The patient is advised to return to the emergency department if symptoms worsen. Additional imaging was considered unnecessary at
this time given the lack of abdominal tenderness and stable condition.
INDEPENDENT REVIEW OF LABS AND INTERPRETATION OF TESTS
- My independent interpretation of the chest and rib X-ray shows no displaced fractures or lung injury.
PATIENT EDUCATION AND COUNSELING
Discussed with the patient and family the importance of monitoring for worsening symptoms and advised them to return to the emergency department if the condition deteriorates. Educated regarding the use of acetaminophen for pain management and the
importance of avoiding NSAIDs due to the patients anticoagulation therapy.
FOLLOW-UP INSTRUCTIONS
Return to the emergency department if symptoms worsen, such as increased pain, difficulty breathing, or other concerning symptoms.
MEDICATION RECONCILIATION
- Acetaminophen recommended for pain management as needed.
MEDICAL DECISION MAKING
- Number and Complexity of Problems Addressed: Chronic conditions affecting care include Myasthenia Gravis and dementia. Differential Diagnosis includes rib contusion or fracture, soft tissue injury from the fall, internal bleeding due to
anticoagulant use, and other musculoskeletal injuries.
- Data:
- Category 1: I reviewed the chest and rib X-ray showing no displaced fractures or lung injury. External records reviewed include X-ray imaging reports of the chest and ribs.
- Category 2: Clinical information was obtained from family members regarding the circumstances of the fall and patient behavior.
- Risk: Due to the patient being on anticoagulation therapy, acetaminophen was selected for pain management instead of NSAIDs. Monitoring for potential complications such as internal bleeding due to anticoagulant use is advised. Care significantly
affected by social determinants of health, as the patient relies on family members for assistance.
DIAGNOSIS
- Right-sided chest wall contusion, ICD-10: S20.211A
- Fall, initial encounter, ICD-10: W19.XXXA
Past History
Past History
ED Past Medical History: GERD, HTN, Hypercholesterolemia, Other (Masthenia Gravis) and Other ( Sleep apnea wears C-pap, Gout, peripheral neuropathy)
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
Social History
Tobacco: Non-smoker
Alcohol: None
Personal:
Living: with family
Phy Exam
Physical Exam
Physical Exam:
See HPI
Course
Orders/Labs/Results
Orders:
Orders
04/29/25 13:29
CR Ankle - Left Min 3 Views Urgent
Comment:
Reason For Exam: fall, bruising
CR Ribs-right 3 Vw W/pa Chest* Urgent
Comment:
Reason For Exam: fall, right rib pain
04/29/25 13:41
CT Head W/o Iv Contrast Urgent
Comment:
Reason For Exam: fall, possible head strike
04/29/25 18:00
Acetaminophen [Tylenol] 1,000 mg PO NOW STA
Vital Signs
Initial and Last Documented VS:
Initial Vital Signs
Temp Pulse Resp BP Pulse Ox
36.8 C 58 18 136/109 94
04/29/25 13:25 04/29/25 13:25 04/29/25 13:25 04/29/25 13:25 04/29/25 13:25
Last Documented Vital Signs
Temp Pulse Resp BP Pulse Ox
36.8 C 58 18 136/109 94
04/29/25 13:25 04/29/25 13:25 04/29/25 13:25 04/29/25 13:25 04/29/25 17:44
*Pulse Oximetry
SaO2: 94
Oxygen Mode of Delivery: Room air
Patient hypoxic: no
*Critical Care Note
Total Time (30-74mins, 75-104mins- exclusive of procedures): Not Applicable
ED Attending Note
-
Portions of this chart may have been created with voice recognition software.� Occasional wrong word or��sound alike� substitutions may have occurred due to the inherent limitations of voice recognition software.
Discharge Plan
Departure
Patient Disposition: Home (Routine Discharge)
Date of Disposition: 04/29/25
Time of Disposition: 18:00
Patient with high blood pressure during this ER visit?: Yes
Discharge Problem:
Contusion of anterior chest wall
Instructions: Head Injury in Adults (DC), Contusion (DC), Preventing falls in adults, BLOOD PRESSURE
Prescriptions:
No Action
calcium polycarbophil [Fiber-Tabs] 625 MG tablet
1,250 mg PO BID@0800,1600
finasteride 5 MG tablet
5 mg PO QPM
tamsulosin 0.4 MG capsule
0.8 mg PO QPM
pyridostigmine bromide 60 MG tablet
90 mg PO BID@1200,1600
pyridostigmine bromide 60 MG tablet
60 mg PO DAILY@1999
atorvastatin 40 mg Tablet
40 mg PO HS
memantine 10 mg Tablet
10 mg PO BID
famotidine 20 mg Tablet
20 mg PO DAILY
paroxetine HCl 30 mg Tablet
30 mg PO DAILY
pyridostigmine bromide 60 mg Tablet
120 mg PO DAILY
lvspzajgrvlx-hathyyvc-belgrg Tablet
1 tab PO DAILY
amlodipine 5 mg Tablet
5 mg PO BID AT 0800,1700 30 Days Qty: 60 0RF
allopurinol 100 mg Tablet
100 mg PO DAILY Qty: 30 0RF
furosemide 40 mg Tablet
40 mg PO DAILY 30 Days Qty: 30 0RF
Desitin 40 % Paste
1 applic topical BID 30 Days Qty: 50 0RF
cholecalciferol (vitamin D3) 125 mcg (5,000 unit) Tablet
125 mcg PO NOON Qty: 0 0RF
Eliquis 2.5 mg Tablet
2.5 mg PO BID Qty: 60 0RF
Activity Restrictions/Additional Instructions:
I recommend taking Tylenol 1000 mg 4 times per day over the next few days. Return if worse or other concerns. X-ray of the right side of the ribs and chest showed no sign of injury, x-ray of the left ankle shows no sign of injury, CAT scan of the
brain shows no bleeding.
Interventions
Interventions:
*Risk Screen - Suicide Last Done: 04/29/25 13:28
*Neglect/Abuse Screening Last Done: 04/29/25 13:28
Discharge Date and Time
Print Language: UKRAINIAN
[2025-04-29 17:55] VITALS: BP 134/71
[2025-04-29 18:00] VITALS: BP 138/66
[2025-04-29 18:07] VITALS: BMI 34.7
[2025-04-29] MEDS: TYLENOL 1000 MG PO (18:19)
--- NOTE | 2025-04-29 18:36 | EDRN ---
Reviewed discharge instructions with patient's son and . Verbalized understanding. Taken to car in wheelchair.
[2025-04-29 18:37] VITALS: BP 138/66
== END 2025-04-29 18:38 | disposition home or self-care (01) ==
LOC: EMR 13:16
PROVIDERS: EMERGENCY PHYSICIAN Emergency Medicine; FAMILY PHYSICIAN Family Medicine
DX: S20.219A Contusion of unspecified front wall of thorax, initial encounter (principal); S80.01XA Contusion of right knee, initial encounter; W06.XXXA Fall from bed, initial encounter; E78.00 Pure hypercholesterolemia, unspecified; I10 Essential (primary) hypertension; F03.90 Unspecified dementia, unspecified severity, without behavioral disturbance, psychotic disturbance, mood disturbance, and anxiety; G47.30 Sleep apnea, unspecified; G70.00 Myasthenia gravis without (acute) exacerbation; Z79.01 Long term (current) use of anticoagulants; Z96.651 Presence of right artificial knee joint
CPT/HCPCS: 99284; 70450; 71101; 73610

== ENCOUNTER 2025-05-11 19:28 | Emergency (ER) | payer MEDICARE, OTHER, SELFPAY ==
[2025-05-11 19:28] VITALS: BP 128/109
[2025-05-11 19:31] VITALS: BP 128/109
[2025-05-11 20:08] VITALS: BP 156/82
--- NOTE | 2025-05-11 20:56 | ED.GENMED ---
History of Present Illness
General
Chief Complaint: Fall
Source: patient and family
Time Seen by Provider: 05/11/25 19:30
History of Present Illness
History of Present Illness:
Note:
CHIEF COMPLAINT(S)
Fall with possible head injury.
HISTORY OF PRESENT ILLNESS
The patient is an 85-year-old male who experienced a fall at home. Per the familys account, the patient was attempting to walk back from the bathroom when he fell, apparently due to his pants being around his ankles, which might have caused him to
trip. The incident occurred in a carpeted area over cement, and there is concern that he may have hit his head on the floor. Although no one witnessed the fall, it was captured on a camera accessed remotely by family.
The patient does not report any pain in the neck or head. Family reports he takes a blood thinner, which is notable for potential complications with head trauma. On examination, there is no significant pain or palpable knot on the back of the head,
and the patient denies neck pain. The family mentions they often help the patient walk by holding his pants to prevent falls, indicating possible difficulty with unsupported ambulation.
The patient is awake, alert, and oriented with baseline confusion about the event. He has normal movement in all extremities and reports no abdominal pain.
PAST MEDICAL AND SURIGICAL HISTORY
The patient has a known medical history that includes being on a blood thinner.
CHRONIC MEDICAL CONDITIONS SIGNIFICANTLY AFFECTING CARE
- Anticoagulation therapy (blood thinner).
PHYSICAL EXAM
General: Alert, some baseline confusion, no acute distress.
Skin: No lacerations, bruising, or hematoma noted.
Head: Normocephalic, atraumatic, no significant tenderness, or swelling on palpation of the head.
Neck: Supple, full range of motion, no neck tenderness.
Eye, ears, nose, mouth, and throat: Oral mucosa moist.
Cardiovascular: Normal heart rate, no murmurs observed.
Respiratory: Breathing is non-labored.
Gastrointestinal: Abdomen soft, non-tender.
Back: No tenderness along the spine.
Musculoskeletal: Moves all extremities well with normal strength. Wearing a brace on the right ankle.
Neurological: Alert and oriented to person, place, time, and situation. Moves all extremities equally with normal strength.
Psychiatric: Cooperative, appropriate mood & affect for baseline.
PLAN
1. Review the results of the CT scan to ensure no intracranial bleeding is present.
2. If the CT scan is clear, begin ambulation trial with assistance to determine the patient�s ability to maintain balance and avoid falls.
3. Educate patient and family on the importance of using walking assistive devices to prevent future falls.
4. Discharge instructions to family include monitoring for any new or worsening symptoms such as headaches, confusion, or weakness and follow-up with primary care physician.
DIFFERENTIAL DIAGNOSIS
The Differential Diagnosis includes, in no particular order and is not limited to:
1. Head trauma with or without concussion
2. Intracranial hemorrhage
3. Orthostatic hypotension
4. Medication side effects
5. Mechanical fall
6. Vestibular dysfunction
7. Cardiovascular syncope
8. Neurological disorder underlying confusion
9. Environmental hazard causing fall
10. Muscle weakness or balance impairment due to age
Disposition:
SUMMARY OF ENCOUNTER
The patient, an 85-year-old male, was seen in the emergency department following a fall at home. There was concern about a possible head injury since he was taking anticoagulation therapy. A comprehensive physical and neurological examination showed
no signs of head trauma, and the patients family confirmed that he was at his baseline cognitive status. A CT scan was performed and showed no evidence of intracranial hemorrhage.
DISPOSITION
Discharge
ASSESSMENT
Possible head injury due to a fall, but no evidence of acute intracranial hemorrhage.
PLAN
1. Educate the patient and family on the importance of using assistive devices to prevent future falls.
2. Discharge the patient with instructions for the family to monitor for any new or worsening symptoms such as headaches, confusion, or weakness and to follow up with the primary care physician.
INDEPENDENT REVIEW OF LABS AND INTERPRETATION OF TESTS
- My independent interpretation of the CT scan is negative for acute intracranial hemorrhage.
PATIENT EDUCATION AND COUNSELING
Discussed the importance of fall prevention strategies such as using assistive devices during ambulation and ensuring the living environment is safe.
FOLLOW-UP INSTRUCTIONS
Family instructed to follow up with the primary care physician and to report any new or worsening symptoms such as confusion, headache, or weakness immediately.
MEDICAL DECISION MAKING
-Complexity of Data Reviewed: Chronic conditions affecting care include anticoagulation therapy. Differential Diagnosis considered were: head trauma with or without concussion, intracranial hemorrhage, orthostatic hypotension, medication side
effects, mechanical fall, vestibular dysfunction, cardiovascular syncope, neurological disorder underlying confusion, environmental hazard causing fall, muscle weakness or balance impairment due to age.
-Data:
Category 1
Clinical information was obtained from an independent historian.
My independent interpretation of the CT scan shows it is negative for acute intracranial hemorrhage.
-Risk:
Consideration of Admission/Observation: Escalation of care including admission/observation was considered given the complexity and risk of the patients presenting complaint, exam findings, and their underlying comorbidities. However, ultimately I
feel the patient is safe for outpatient management with close follow-up. Reasoning: Work-up reassuring, does not reveal any acute life/organ-threatening processes, patients symptoms well controlled upon reevaluation, reexamination is reassuring,
vitals are stable, patient agreeable with discharge, reliable for follow-up.
DIAGNOSIS
Fall (ICD-10-CM W19.xxxS)
Observation for suspected head injury (ICD-10-CM Z04.3)
Past History
Past History
ED Past Medical History: GERD, HTN, Hypercholesterolemia, Other (Masthenia Gravis) and Other ( Sleep apnea wears C-pap, Gout, peripheral neuropathy)
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
Social History
Tobacco: Non-smoker
Alcohol: None
Personal:
Living: with family
Phy Exam
Physical Exam
Physical Exam:
.
Course
Orders/Labs/Results
Orders:
Orders
05/11/25 19:36
CT Head W/o Iv Contrast Urgent
Comment:
Reason For Exam: fall
Vital Signs
Initial and Last Documented VS:
Initial Vital Signs
BP
128/109
05/11/25 19:28
Last Documented Vital Signs
Temp Pulse Resp BP Pulse Ox
97.8 F 69 18 156/82 98
05/11/25 19:31 05/11/25 19:31 05/11/25 19:31 05/11/25 20:08 05/11/25 20:58
*Pulse Oximetry
SaO2: 98
Oxygen Mode of Delivery: Room air
Patient hypoxic: no
*Critical Care Note
Total Time (30-74mins, 75-104mins- exclusive of procedures): Not Applicable
ED Attending Note
-
Portions of this chart may have been created with voice recognition software.� Occasional wrong word or��sound alike� substitutions may have occurred due to the inherent limitations of voice recognition software.
Discharge Plan
Departure
Patient Disposition: Home (Routine Discharge)
Date of Disposition: 05/11/25
Time of Disposition: 20:59
Patient with high blood pressure during this ER visit?: Yes
Discharge Problem:
Head injury
Instructions: Head Injury in Adults (DC), BLOOD PRESSURE
Prescriptions:
No Action
calcium polycarbophil [Fiber-Tabs] 625 MG tablet
1,250 mg PO BID@0800,1600
finasteride 5 MG tablet
5 mg PO QPM
tamsulosin 0.4 MG capsule
0.8 mg PO QPM
pyridostigmine bromide 60 MG tablet
90 mg PO BID@1200,1600
pyridostigmine bromide 60 MG tablet
60 mg PO DAILY@1999
atorvastatin 40 mg Tablet
40 mg PO HS
memantine 10 mg Tablet
10 mg PO BID
famotidine 20 mg Tablet
20 mg PO DAILY
paroxetine HCl 30 mg Tablet
30 mg PO DAILY
pyridostigmine bromide 60 mg Tablet
120 mg PO DAILY
jbrribqkekfl-hpkfijcr-fuzgta Tablet
1 tab PO DAILY
amlodipine 5 mg Tablet
5 mg PO BID AT 0800,1700 30 Days Qty: 60 0RF
allopurinol 100 mg Tablet
100 mg PO DAILY Qty: 30 0RF
furosemide 40 mg Tablet
40 mg PO DAILY 30 Days Qty: 30 0RF
Desitin 40 % Paste
1 applic topical BID 30 Days Qty: 50 0RF
cholecalciferol (vitamin D3) 125 mcg (5,000 unit) Tablet
125 mcg PO NOON Qty: 0 0RF
Eliquis 2.5 mg Tablet
2.5 mg PO BID Qty: 60 0RF
Referrals:
Last Rice MD [Family Provider, Family Practice]
Activity Restrictions/Additional Instructions:
Return immediately for changes in mentation, vomiting, headache, weakness of any kind or any other concerns.
Interventions
Interventions:
*Risk Screen - Suicide Last Done: 05/11/25 19:30
*General Assessment Last Done: 05/11/25 19:31
*Neglect/Abuse Screening Last Done: 05/11/25 19:30
*ED- Fall Risk Assessment Last Done: 05/11/25 19:31
*ED COVID-19 Vaccine History Last Done: 05/11/25 19:31
*ED Influenza Vaccine History Last Done: 05/11/25 19:31
ED-Musculoskeletal Assessment Last Done: 05/11/25 19:34
ED- Neurological Assessment Last Done: 05/11/25 19:34
ED-Skin Assessment Last Done: 05/11/25 19:34
Discharge Date and Time
Print Language: SAUDI ARABIAN
[2025-05-11 21:03] VITALS: BP 148/66
[2025-05-11 21:07] VITALS: BP 148/66
== END 2025-05-11 21:14 | disposition home or self-care (01) ==
LOC: EMR 19:28
PROVIDERS: EMERGENCY PHYSICIAN Emergency Medicine; FAMILY PHYSICIAN Family Medicine
DX: S09.90XA Unspecified injury of head, initial encounter (principal); W01.0XXA Fall on same level from slipping, tripping and stumbling without subsequent striking against object, initial encounter; Y92.002 Bathroom of unspecified non-institutional (private) residence as the place of occurrence of the external cause; E78.00 Pure hypercholesterolemia, unspecified; I10 Essential (primary) hypertension; G47.30 Sleep apnea, unspecified
CPT/HCPCS: 99284; 70450